=== PATIENT | female | born 1955 | race Caucasian/White ===

== ENCOUNTER → 2019-09-07 10:36 | Outpatient (CLI) | payer MEDICARE, OTHER, SELFPAY ==
[2019-09-07 11:46] LABS: Hematocrit 39.4 % (36-46); Hemoglobin 13.1 g/dL (12.0-16.0); Mean Corpuscular HGB Conc 33.2 % (30-36); Mean Corpuscular Hemoglobin 32.9 PG (26-34); Platelet Count 321 X10^3/uL (150-400); Red Blood Cell Count 3.98 X10^6/uL (4.0-5.2); Red Cell Distribution Width 13.4 % (11.6-14.8); White Blood Cell Count 6.2 X10^3/uL (4.5-11.0)
== END ==
PROVIDERS: Visit Provider Orthopaedic Surgery
DX: Z01.818 Encounter for other preprocedural examination (principal)
CPT/HCPCS: 36415; 85027

== ENCOUNTER 2019-09-19 08:01 | Day surgery (SDC) | payer MEDICARE, OTHER, SELFPAY ==
[2019-09-07 12:55] VITALS: BMI 20.7
[2019-09-19] VITALS (17 sets, daily range): BP systolic 74–124; BP diastolic 39–69; PULSE 49–68; RESP 8–18; TEMP 35.8–37.1; O2SAT 95–100; BMI 20.7
--- NOTE | 2019-09-19 08:15 | DI.RAD.S_ITS ---
PROCEDURE: XR KNEE LT 1TO2V INDICATIONS: post operative left knee TECHNIQUE: 2 view(s) of the knee acquired. COMPARISON: None. FINDINGS: Bones: Patient is status post knee joint arthroplasty. Hardware components are in expected positions. Visualized bony structures are intact. Soft tissues: Overlying postoperative changes are noted. IMPRESSION: Expected postoperative appearance Dictated by: Trung Guzmán M.D. on 09/19/2019 at 13:39 Approved by: Trung Guzmán M.D. on 09/19/2019 at 13:40
[2019-09-19] MEDS: PREGABALIN 75 MG CAPSULE PO (08:56)
[2019-09-19] MEDS: ACETAMINOPHEN 325 MG TABLET 975 MG PO ×3 (08:56→21:05)
[2019-09-19] MEDS: LACTATED RINGERS 1,000 ML 42 ML IV ×2 (08:56→11:50)
[2019-09-19] MEDS: CELECOXIB 200 MG CAPSULE PO (08:56)
--- NOTE | 2019-09-19 09:53 | PM.PREOP ---
Pre-operative Note Interval Note History & Physical reviewed/Exam performed by Physician: Yes Changes to H&P: Yes H&P completed within 30 days and has changed as indicated here:: Dose of hypothyroid medication was increased. This has been appropriately recorded in the chart.
--- NOTE | 2019-09-19 10:23 | PM.OP.1 ---
Operative Date/Time/Diagnoses Date of procedure: 09/19/19 Time of procedure: 11:50 Pre-op diagnosis: Left knee osteoarthritis Post-op diagnosis: same Procedure & Clinicians Procedure: Left total knee replacement Same procedure as scheduled: Yes Indications: The patient has had progressively worsening left knee pain with radiographic changes consistent with arthritis. Non-operative management has failed and the patient has requested total knee replacement. The risks, benefits and alternatives to surgery were discussed with the patient prior to proceeding. Risks discussed included, but were not limited to, failure to relieve pain, stiffness, infection, nerve damage, deep venous thrombosis, pulmonary embolism, stroke, coma, heart attack, permanent paralysis and , as well as the potential need for eventual revision of the prosthetic. Surgeon: Jewel Davison Meteorologist Liaison: Caden Coleman Click Yes if Unassisted: No Anesthesia Type: General, Spinal and Local Operative Notes Findings: Significant patellofemoral osteoarthritis with bone on bone change with moderate medial and lateral osteoarthritic change. Closure Type: primary Specimen(s): none sent Prosthetic devices, grafts, tissues, transplants, or devices: Implants used in this procedure were manufactured by the [employer] and [employer] and included the BCS II Journey total knee replacement with a size 3 left Oxinium femoral component, a size 3 left non porous tibial base plate, a 9 mm cross-linked constrained tibial insert and a 32 mm oval Sasha II patellar component. Applied: implant(s) Estimated Blood Loss (mL): 25 Blood products transfused: none Tourniquet time (min): 49 Procedure in detail: The patient was seen in the pre-operative area, where the left knee was identified as the operative site and this was marked with my initials. The patient received pre-operative antibiotics, and was taken to the operating room and placed on the operative table in the supine position. After satisfactory anesthesia, a multimedia teacher out? was performed. The left leg was encircled with a tourniquet about the proximal thigh, and the leg was prepared from the toes to the tourniquet with ChloroPrep in the usual fashion and draped through sterile drapes. The leg was elevated and exsanguinated with Eschmark bandage and the tourniquet inflated to 250 mmHg pressure. The knee was approached through an approximately 18 cm incision centered over the patella and carried into the knee through a medial parapatellar arthrotomy. The anterior osteophytes and soft tissues were removed. The rotational landmarks of Gurmeet's line and the transepicondylar axis were marked on the femur with electrocautery, and intramedullary guide holes for the femur and tibia were created. The distal femoral cut was made in 6 degrees of valgus using the intramedullary guide at the primary cut setting. The proximal tibial cut was then made using the intramedullary guide, taking 9 mm of bone off the less involved side. The extension gap was checked and the rotation of the femoral component confirmed with the gap balancing blocks. The knee was completely stable in extension but there was some gapping on the medial side in flexion. Correcting this by rotating the femoral component would have resulted in extensive internal femoral rotation. The anterior, posterior and chamfer cuts were then made. The posterior osteophytes and soft tissues were then removed. The posterior capsule was injected with part of a mixture of 60 ml 0.25% Marcaine mixed with 20 ml Exparel and 4 mg of morphine for post-operative pain control. The remainder of this mixture was injected into the capsule and subcutaneous tissues during cement curing. The tibia was prepared with the rotation set by an extra medullary guide. Trial tibial and femoral components were then placed and the intercondylar notch cut through the femoral trial. Range of motion was 0-140 degrees, with some residual laxity on the medial side in flexion. As a result I elected to use a constrained tibial insert to provide additional medial lateral stability. The patella was then cut to accommodate the patellar prosthetic. There was no need for a lateral release. The trials were then removed, and the femoral hole plugged with a bone plug. The bone was prepared with pulsatile lavage, and dried with a sponge. Cement was applied and the final prosthetics placed. Excess cement was removed during and after cement curing. After confirming there was no extruded cement posteriorly, the final tibial insert was placed. The knee was copiously irrigated and the tourniquet deflated. Hemostasis was obtained. The capsule was closed with interrupted # 2 polyester sutures. The subcutaneous layer was closed with 3-0 Vicryl, and the skin with a running 3-0 V-Lock suture and SteriStrips. An Aquacel Ag dressing was applied and the patient was taken to recovery having tolerated the procedure well. Complications: none Post-operative Condition: stable Disposition: PACU Plan for aftercare: The patient will be maintained on a standard total knee replacement protocol with weight bearing as tolerated. The patient will receive aspirin and sequential compression devices for DVT prophylaxis. The patient will be discharged home when safe for the home environment.
[2019-09-19] MEDS: CEFAZOLIN 2 GM/100 ML FROZ.PIGGY IV (10:27)
[2019-09-19] MEDS: TRANEXAMIC ACID 1,000 MG VIAL 1000 MG INJ ×2 (10:41→11:43)
--- NOTE | 2019-09-19 10:56 | SUR.OPER ---
Supine on padded OR bed. Pillow under head, arms secured on padded armboards <90 degree abduction. Safety belt across torso. Non-operative leg secured with tape over blanket over lower leg. Operative leg secured in DeMayo/Nabor positioner.
[2019-09-19] MEDS: BUPIVACAINE 0.25% W/ EPI 30 ML VIAL 60 ML INJ (11:01)
[2019-09-19] MEDS: BUPIVACAINE LIPOSOME 266 MG/20 ML VIAL INJ (11:02)
[2019-09-19] MEDS: MORPHINE 4 MG/ML INJ INJ (11:02)
[2019-09-19] MEDS: HYDROMORPHONE 2 MG INJ 0.5 MG IV ×2 (12:15→12:27)
--- NOTE | 2019-09-19 12:16 | SUR.PHASEI ---
BP 74/39, Dr. Cottrell at bedside. 500ml bolus LR ordered and started by .
--- NOTE | 2019-09-19 12:30 | SUR.PHASEI ---
Pt reported that her knee popped. JORGITO Hamilton notified and evaluated patient. No new orders.
--- NOTE | 2019-09-19 12:39 | SUR.PHASEI ---
Bolus complete. Bp 88/52.
--- NOTE | 2019-09-19 12:43 | SUR.PHASEI ---
Report to Lyla
--- NOTE | 2019-09-19 12:47 | SUR.PHASEI ---
assumed care from Jojo Brar RN; pt states that pain is coming down It's not a miracle cure. No non-verbal indicators of pain. Resting calmly, taking ice chips. Willie trujillo
[2019-09-19] MEDS: OXYCODONE IR 5 MG TABLET PO ×2 (12:55→22:11)
--- NOTE | 2019-09-19 13:16 | SUR.PHASEI ---
1307 report was called to AC RN, pt to floor by Jojo Brar RN. Clothing bag taken, pain controlled at 4/10, +motion/sensation in LE, Drst CDI. Stable.
[2019-09-19] MEDS: LACTATED RINGERS 1,000 ML 125 ML IV ×2 (13:20→21:09)
--- NOTE | 2019-09-19 13:52 | PC.NURSE ---
Addendum entered by Scarlett Angel R.N. 09/19/19 14:54: Vitals stable. Feeling well overall, working on eating a little snack. Was medicated with scheduled Tylenol and denies need for additional pain meds at this time. Able to make needs known. Light in reach, bed alarm on. Original Note: Post-op: Arrived to room 228 at 1315. Wide awake and alert, oriented X3. Room air w/ cont pulse ox in place. Santiago/dressing to L knee C/D/I. Still a bit numb/tingly in extremities. Is able to wiggle toes, PP+, BLE's warm, pink and with cap refill <2 sec. Rates pain 2/10 at this time. SCD's and ice pack in place. Denies N/V. BT+ (hypoactive), denies flatus at this point. Oriented to room and call light, encouraged to make needs known. Call light within reach, bed alarm on.
[2019-09-19] MEDS: DOCUSATE 100 MG CAPSULE PO (21:04)
[2019-09-19] MEDS: ASPIRIN EC 81 MG TABLET PO (21:05)
--- NOTE | 2019-09-20 00:31 | PC.NURSE ---
Patient is alert and oriented. Breath sounds CTA with RA sat of 99%. HRR. Denies nausea. BT present and abdomen is soft; passing flatus. Voiding per toilet; denies dysuria, frequency or urgency. Able to move self in bed, although assisted to lie on side by placing supportive pillows. Up to bathroom with walker and SBA. Denies pain except with movement and declines pain medication at this time. Ice pack applied to knee. Aquacel + orly wrap is CDI. CMS is intact bilaterally. SCD's applied bilateral. Fall risk score is moderate; bed alarm activated for night.
[2019-09-20] MEDS: OXYCODONE IR 5 MG TABLET PO ×4 (02:29→12:54)
[2019-09-20 04:37] VITALS: BP 111/64; PULSE 54; RESP 16; TEMP 37.2; O2SAT 100
[2019-09-20] MEDS: LEVOTHYROXINE 100 MCG TABLET PO (05:32)
[2019-09-20 05:45] LABS: Hematocrit 33.9 % (36-46); Hemoglobin 11.7 g/dL (12.0-16.0)
--- NOTE | 2019-09-20 07:31 | PM.DS.1 ---
History of Present Illness History of Present Illness Date Patient Seen: 09/20/19 Time Patient Seen: 07:32 Chief complaint: [id number] Narrative: The history and physical is contained in the chart and her previously completed note. Please refer to that note for this information. Discharge Providers Provider Date of admission: 09/19/19 08:01 Discharge Date: 09/20/19 Consults: 09/19/19 13:33 Consult to Discharge Planning Routine Comment: Consult to Physical Therapy Evaluate & Treat Comment: Physician Instructions: postop TKA protocol Consult to Respiratory Therapy Evaluate & Treat Comment: Physician Instructions: Evaluate and treat Discharge provider: Jewel Davison MD Summary Hospital Course Discharge Diagnosis: 1. Left knee osteoarthritis 2. Post hemorrhagic anemia Hospital Course: The patient was admitted to the hospital and taken directly to the operating room on September 19, 2019 where she underwent a left total knee replacement without complications. She was stable on postoperative day 1 and had been up multiple times to the bathroom overnight. At the time of this dictation is felt she will likely be stable for discharge later today. Status at Discharge Cognitive/behavioral status at discharge: oriented Functional status at discharge: uses cane/walker Overall status at discharge: patient is progressing back to baseline Time Spent with Patient Time spent: Less than 30 minutes Exam Vital Signs (past 8 hours): - 09/19/19 23:35 09/20/19 04:37 Temperature 98.7 F 98.9 F Pulse Rate 51 L 54 L Respiratory Rate 16 16 Blood Pressure 105/58 L 111/64 Pulse Oximetry 100 100 Oxygen Delivery Method Room Air Oxygen Flow Rate 0 Narrative Exam Narrative: Left knee wound is dressed. No drainage on the bandage. Calf is soft. Light touch and motion are intact in the left lower extremity. Objective Labs Result Diagrams: 09/20/19 05:30 Labs: Laboratory Results - last 24 hr 09/20/19 05:30 Hgb 11.7 L Hct 33.9 L Discharge Plan Discharge Plan Patient Disposition: Home Discharge Med Rec/Prescriptions Prescriptions: New acetaminophen 325 mg Tablet 975 mg PO TID 30 Days Qty: 270 RF: 0 aspirin 81 mg Tablet,Delayed Release (Dr/Ec) 81 mg PO BID 42 Days Qty: 84 RF: 0 oxycodone 5 mg Tablet 5 mg PO Q3HR PRN (Reason: Pain, Moderate (4-6)) Qty: 40 RF: 0 hydroxyzine pamoate 25 mg Capsule 25 mg PO Q6HR PRN (Reason: Nausea) Qty: 40 RF: 0 Continued levothyroxine 88 mcg Capsule 100 mcg PO QAM RF: 0 Follow up/Referrals: Jewel Davison MD [Physician] - 3-5 Days Provider Discharge Instructions Diet: Diet as Tolerated and Regular Activity: You may bear weight as tolerated on your left leg. Cold/Heat Therapy: Apply ice to the left knee for 15 minutes of every hour as needed for pain control. Skin/Wound/Dressing Care Report to your healthcare provider any signs of infection, such as:: chills, fever, night sweats, increased pain, unusual drainage and unusual redness Dressing: Remove the Santiago wrap 3 days postoperatively. You may then shower normally with the deeper dressing in place. Leave that dressing in place until your follow-up appointment. If the central strip of the dressing becomes saturated with either water or blood call the office to have it changed. Visit Report/Discharge Packet Instructions: DI for Knee Replacement Stand Alone Forms: Surgery Discharge Quality VTE Deep Vein Thrombosis/Pulmonary Embolism Present on Admission: No
[2019-09-20 07:55] VITALS: BP 110/56; PULSE 51; RESP 18; TEMP 36.8; O2SAT 100
[2019-09-20] MEDS: SODIUM CHLORIDE 0.9% FLUSH 10 ML IV (08:57)
[2019-09-20] MEDS: ASPIRIN EC 81 MG TABLET PO (09:03)
[2019-09-20] MEDS: MELOXICAM 7.5 MG TABLET 15 MG PO (09:03)
[2019-09-20] MEDS: DOCUSATE 100 MG CAPSULE PO (09:03)
[2019-09-20] MEDS: ACETAMINOPHEN 325 MG TABLET 975 MG PO (09:04)
--- NOTE | 2019-09-20 09:17 | CM.DANOTE ---
DCP/Assessment: Reviewed chart. Patient is a 64yr old female admitted to [facility] for left TKA performed on 09-19-[address] Davison. PCP not listed. Primary payor is 1)Medicare 2)[facility]. Met with patient explained CM/SW role. Patient sitting in recliner at time of visit. Patient reports that she hopes to d/c home today. Patient has supportive spouse/Lokesh that can assist with support. Patient reports that she has all needed DME. Patient has outpatient therapy scheduled to begin on 09-26 at [facility]. Patient reports that she is primarily I at baseline. Patient hopes to d/c home today. Therapy evaluation pending. P: Home when medically stable. EDILBERTO Minaya Discharge Planning/Care Management CM Discharge Assessment Start: 09/20/19 09:14 Freq: Status: Active Protocol: Document 09/20/19 09:14 KJS (Rec: 09/20/19 09:17 KJS [id number]) Discharge Planning Assessment Assigned Machine Taper EDILBERTO Minaya Contact Information Lokesh Cutler (spouse) Advance Directives? Yes Advance Directives on File No History Provided By Patient,Medical Record Prior Living Arrangements House Household Members spouse Type of transporation used prior to Drives own vehicle admit Independent with ADL's Yes Is patient alert and oriented? Yes Caregiver for Another No DME Already Rented / Owned Bath Bench,Elevated Toilet Seat,FWW / Walker Patient/Family Preference OP PT Therapy Comment Patient has 7 steps to enter residence Discharge Plan Home Transportation Arrangement Family to provide transport Whiteboard Updated in Patient Room with Yes name and ext. # of Machine Taper Review Status In Process Next Review Type Continued Stay Review Pre-Anesthesia Assessment Start: 09/07/19 12:55 Freq: Status: Complete Protocol: Document 09/07/19 12:55 CAB (Rec: 09/07/19 13:43 CAB [id number]) Pre-Anesthesia Assessment Patient Also Known As (AKA) Laurence Patient Information Reviewed Via Phone Assessment Assessment Completed With Patient Diagnostic Results BMP/CMP,CBC,EKG,Urinalysis Comment Outside labs/EKG scanned to record Primary Care Provider Monika Collins Medical Clearance Received Yes Seen Specialist in Last 12 Months Yes Specialist Seen Orthopedist Comment PCP pre-op 09/01/19 scanned to record Primary Language Arabic Newscast Director Required No Height 165.1 cm Weight 56.699 kg Body Mass Index (BMI) 20.7 Hearing Ability Normal Visual Assist Glasses Dentition Type Teeth, Natural Present Barriers to Learning None Hx Anesthesia Reactions No Hx Family Anesthesia Reaction No Hx Malignant Hyperthermia No Hx Blood Transfusions No Anesthesia Review Requested No alcohol intake current Alcohol Intake Frequency Other: Very rare Smoking Status Never smoker Substance Use Type does not use Pain Present Pain Reported Musculoskeletal Symptoms Abnormal Gait,Difficulty Walking,Joint Pain,Joint Stiffness History of Falling (Recent or History of No ) Patient is completely paralyzed or No completely immobile Mental Status Oriented to own ability Is patient on oxygen? No Does patient have OMALLEY/SOB No Hx Sleep Apnea No Currently Taking a Beta Asif No Can You Climb a Flight of Stairs Without Yes SOB Hx Chest Pain No Hx SOB No Hx Syncope or Dizziness No Anti-Coagulant Therapy No Has a Steel Die Printer No Cardiac Testing No Hx Pacemaker/ICD No Pacemaker Rep Required? No Cardiac Clearance Received Not Applicable Diet Type At Home Gluten Free dysphagia No Bladder Pattern Urgency Urinary Catheter Present No Hx Urinary Self Catheterization No Diabetes Yes HgbA1C 5.0 Date 09/01/19 Patient No Lactating No Hx Drug Resistant Organism No Presence of External or Internal Medical No Devices Have you traveled outside the [facility] States in the last 30 days? Marital Status Lives With spouse Prior Living Arrangements House Number of Floors (Floors) One Floor Number of Stairs To Enter/Railing? 7 Stairs up into house Support System Friend(s),Spouse Does the Patient Have Assistance After Yes Surgery Patient Discharge Plan Description Return Home Comment Pt not advised on length of stay per surgeon's office Feels Safe in Current Environment Yes Been Physically Hurt or Threatened By a No Person in Current Environment Do you have thoughts of harming yourself None or others? Are you currently considering suicide? No Do you have a plan to hurt yourself or No Plan others? Do You Have Any Spiritual Beliefs That No May Affect Your HC Choices? Do You Have Any Cultural Practices That No May Affect Your HC Choices? Who Can We Speak to About Patient's Care Family, friends Identifying Code for Release of Patient Declines to issue Information Health Care Proxy/Next of Kin Lokesh () Health Care Proxy Emergency Contact Name Lokesh () Emergency Contact Advance Directives? Yes Advance Directives on File No Requested Patient Bring Advanced Yes Directives DOS Power of Sample Worker Yes Power of Sample Worker Name Lokesh () Power of Sample Worker PAC Instructions Do not shave/clip surgical site,Durable medical equipment ,Medications to take/avoid, Nasal antibiotic,No ETOH/ petroleum product on skin DOS, NPO,Pre-surgical wash,Sturdy shoes/comfortable clothes
[2019-09-20 10:20] VITALS: PULSE 53; O2SAT 98
--- NOTE | 2019-09-20 10:22 | PT.IIE ---
Current Diagnoses Unilateral primary osteoarthritis, left knee (09/19/19) Surgery Performed Operation Date: 09/19/19 10:15 Actual Procedures p Total Knee Arthroplasty(Left) - Jewel Davison MD Surgical History (Last Updated 09/07/19 @ 13:12 by Elvia Christine, RN) Hx of tonsillectomy (Acute) Medical History (Last Updated 09/07/19 @ 13:12 by Elvia Christine, RN) Anemia (Acute) Dry skin (Acute) GERD (gastroesophageal reflux disease) (Acute) Gluten intolerance (Acute) Hypothyroidism (Acute) Osteoarthritis (Acute) Physical Therapy Inpatient Evaluation/Re-Eval M1 PT/OT-IP Prior Functional Status Start: 09/19/19 14:08 Freq: NEEDED Status: Active Protocol: Document 09/20/19 09:47 AW (Rec: 09/20/19 10:22 AW [id number]) Medical Review Prior Functional Status Medical History Reviewed Yes Diet/Fluid Consistency Regular Communication No known deficits Mobility and Gait Pt was very active, able to walk without limitation and without assistive device. She used bilateral trekking poles for ambulation on uneven terrain. She noticed she was limited last summer in her ability to backpack with significant elevation change. Activities of Daily Living and IADL's Independent Prior Functional Level (Other details) Pt swims, uses a recumbent elliptical, and walks her dogs daily. Social History Household Members spouse Living Arrangements House Number of Floors (Floors) One Floor Number of Stairs To Enter/Railing? 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 She lives with her spouse who plans to take several days off when pt discharges. M2 PT-IP Current Condition Start: 09/19/19 14:08 Freq: NEEDED Status: Active Protocol: Document 09/20/19 09:47 AW (Rec: 09/20/19 10:22 AW [id number]) Physical Therapy Current Condition Current Condition Evaluation Date 09/20/19 Treatment Diagnosis s/p left TKA, difficulty in walking Onset Date 09/19/19 Weight Bearing Status Weight Bearing Status Weight Bear as Tolerated M3 PT-IP Subjective Start: 09/19/19 14:08 Freq: NEEDED Status: Active Protocol: Document 09/20/19 09:47 AW (Rec: 09/20/19 10:22 AW [id number]) Subjective Physical Therapy Visit Type Type Initial Evaluation Visit Start Time 08:53 Visit Stop Time 09:40 Total Visit Minutes 47 Number of CLERICAL SUPPORT SPECIALIST Visits 0 Physical Therapy Visit Comments Patient Comments Pt is happy to participate in therapy. Patient Goals Hopes to discharge today with spouse assist Therapy Pain Assessment Pain When Pain Assessed During Mobility Pain Present Pain Present Pain Reported Location Lt Knee Intensity 5 Scale Used 4/10 at rest; 5/10 during mobility Pain Management Techniques Apply Cold,Re-positioning, Timing of Activity with Medications M4 PT-IP Mobility and Gait Start: 09/19/19 14:08 Freq: NEEDED Status: Active Protocol: Document 09/20/19 09:47 AW (Rec: 09/20/19 10:22 AW [id number]) PT-Bed Mobility Assessment Supine to Sit Supine to Sit Standby Assistance Sit to Supine Sit to Supine Standby Assistance Scooting Scooting to Edge of Bed Standby Assistance PT-Transfer Assessment Sit to and From Stand Sit to and from Stand Standby Assistance,Contact Guard Assistance Equipment Transfer Assistive Device Gait Belt,Front Wheeled Walker Orthotic/Prosthetic Devices or Brace: No Transfers Transfer Destination Bed,Chair,Toilet,Wheelchair Transfer Technique pt ambulated with FWW Transfer Ability Level of Assist Standby Assistance,Contact Guard Assistance Comments Mobility Comments Pt completed supine <> sit transfers with SBA. Sit <> stand transfers required CGA first 2 attempts and SBA for subsequent attempts. Gait Assessment Gait Gait Assistance Required: Standby Assistance,Contact Guard Assist Distance (Feet) 150 Able to Maintain Weight Bearing Status Yes During Gait Assistive Devices Assistive Device Gait Belt,Front Wheeled Walker Orthotic/Prosthetic Devices or Brace: No Gait Deviations General Gait Pattern Antalgic,Decreased Stride Length,Decreased Feet Clearance,Flexed Trunk,Step-to Gait Factors Limiting Gait Function Factors Limiting Gait Function Decreased Activity Tolerance, Decreased Strength,Pain Comments Gait Comments Pt ambulated 150 feet using FWW CGA to SBA with wheelchair follow. She required cues for heelstrike with LLE and swing -through with RLE. She reported increase in pain from 4/10 at rest to 5/10 with ambulation. Stair Climbing Assessment Evaluation Level of Assist On Stairs Contact Guard Assistance Devices Stair Climbing Assistive Devices Left Railing Technique/Endurance Stair Climbing Direction Ascend and Descend Stair Climbing Technique Step to Step Number of Steps Climbed 3 Query Text: Stair Climbing Set # Repetitions (reps) 2 Comments Stair Climbing Comments First set accomplished with bilateral rails in order to focus on teaching pattern. Second set required minimal cues and was completed using left rail ascending and opposite hand DRAMATIC COACH. PT-Balance Assessment Sitting Balance and Reactions Static Sitting Balance Ability Normal Dynamic Sitting Balance Ability Normal Standing Balance and Reactions Static Standing Balance Ability Good Dynamic Standing Balance Ability Good Device Used FWW M5 PT-IP Objective Assessments Start: 09/19/19 14:08 Freq: NEEDED Status: Active Protocol: Document 09/20/19 09:47 AW (Rec: 09/20/19 10:22 AW [id number]) Orientation Orientation/Cognition Level of Alertness Alert Orientation Name,Date,Place,Situation Language Function Ability No Deficits Noted Safety Awareness Understands Safety Issues Memory Description No Deficits Noted Gross Range of Motion Lower Extremity ROM Assessment Left Impaired Strength Upper Extremity Strength Assessment Within Functional Limits Lower Extremity Strength Assessment Left Impaired Coordination Assessment Gross Coordination Gross Coordination WNL Sensation Assessment Sensation Gross Sensation WNL M6 PT-IP Treatment Start: 09/19/19 14:08 Freq: NEEDED Status: Active Protocol: Document 09/20/19 09:47 AW (Rec: 09/20/19 10:22 AW [id number]) Physical Therapy Treatment Exercises Exercises Ankle Pumps,Quad Sets,Heel Slides,Passive Knee Extension Hang Education Education Provided Precautions,Weight Bearing Status,Post-Op Packet,Safety Other Treatments Other Treatment Performed Reviewed PT plan of care, post op exercises, weightbearing status, and safe use of FWW M7 PT-IP Assessment and Plan Start: 09/19/19 14:08 Freq: NEEDED Status: Active Protocol: Document 09/20/19 09:47 AW (Rec: 09/20/19 10:22 AW [id number]) PT Summary Assessment and Plan Potential Rehabilitation Potential Excellent Status of Condition at Evaluation Evolving Summary Impairments Pain,ROM,Strength,Balance,Bed Mobility,Transfers,Gait, Activity Tolerance Assessment Summary Pt is an active 64 yo woman seen on POD1 following L TKA. PLOF: Pt was independent with all functional mobility. She used bilateral trekking poles for walking uneven terrain and was recently limited in backpacking activities. CLOF: Pt required SBA to CGA for all mobility. She tolerated all activity well with minimal increase in pain. Pt has good safety awareness, requiring only minimal cues for use of UE's during transfers. Pt will be safe to discharge home after caregiver training at next session and once medically cleared Goals Bed Mobility Goal Independent Transfer Goal Independent,Front Wheeled Walker Gait Goal Standby Assistance,Front Wheel Walker Gait Distance 150 Other Goals up/down 7 steps with left railing ascending Days to Meet Goals 2 Frequency of Treatment Frequency Of Treatment Twice a Day Treatment Plan Physical Therapy Treatment Plan Bed Mobility Training,Transfer Training,Gait Training, Therapeutic Exercise,Balance Retraining,Post Op Education, Discharge Planning,Hot or Cold Pack,Neuromuscular Re-ed, Coordination Retraining,Manual Therapy Other Recommendations and Next Treatment caregiver training, Focus specifically on stairs Recommendations To Nursing Amount of Assist Needed Standby Assistance Discharge Recommendations PT Discharge Recommendations Home with Assistance, Outpatient PT
--- NOTE | 2019-09-20 11:34 | PC.NURSE ---
Pts l.knee dressing with aquacel and acewrap. Given oxycodone for complaints of discomfort and working with physical therapy. She has passed pt and will work with the again this afternoon, doing stairs and then be able to discharge home. L.lower extremity swollen with 1+ edema. CMS to area is intact.
--- NOTE | 2019-09-20 13:52 | PT.IPTN ---
Current Diagnoses Unilateral primary osteoarthritis, left knee (09/19/19) Surgery Performed Operation Date: 09/19/19 10:15 Actual Procedures p Total Knee Arthroplasty(Left) - Jewel Davison MD Physical Therapy Treatment Note M2 PT-IP Current Condition Start: 09/19/19 14:08 Freq: NEEDED Status: Active Protocol: Document 09/20/19 09:47 AW (Rec: 09/20/19 10:22 AW [id number]) Physical Therapy Current Condition Current Condition Evaluation Date 09/20/19 Treatment Diagnosis s/p left TKA, difficulty in walking Onset Date 09/19/19 Weight Bearing Status Weight Bearing Status Weight Bear as Tolerated M3 PT-IP Subjective Start: 09/19/19 14:08 Freq: NEEDED Status: Active Protocol: Document 09/20/19 13:13 CLB (Rec: 09/20/19 13:52 CLB [id number]) Subjective Physical Therapy Visit Type Type Treatment Note Visit Start Time 13:13 Visit Stop Time 13:42 Total Visit Minutes 29 Number of MEDICAL RECORDS AUDITOR Visits 1 Physical Therapy Visit Comments Patient Comments Pt ready to trial stairs with . Therapy Pain Assessment Pain When Pain Assessed During Mobility Pain Present Pain Present Pain Reported Location Lt Knee Intensity 5 Scale Used Numeric (1 - 10) Pain Management Techniques Apply Cold,Re-positioning, Timing of Activity with Medications M4 PT-IP Mobility and Gait Start: 09/19/19 14:08 Freq: NEEDED Status: Active Protocol: Document 09/20/19 13:13 CLB (Rec: 09/20/19 13:52 CLB [id number]) PT-Transfer Assessment Sit to and From Stand Sit to and from Stand Standby Assistance,Use of Upper Extremities Equipment Transfer Assistive Device Gait Belt,Front Wheeled Walker Orthotic/Prosthetic Devices or Brace: No Transfers Transfer Destination Chair,Wheelchair Transfer Technique pt ambulated with FWW Transfer Ability Level of Assist Standby Assistance,Use of Upper Extremities Comments Mobility Comments Pt transferred with providing SBA. Gait Assessment Gait Gait Assistance Required: Standby Assistance Distance (Feet) 150 Able to Maintain Weight Bearing Status Yes During Gait Assistive Devices Assistive Device Gait Belt,Front Wheeled Walker Orthotic/Prosthetic Devices or Brace: No Gait Deviations General Gait Pattern Antalgic,Decreased Stride Length,Decreased Feet Clearance,Flexed Trunk,Step-to Gait Factors Limiting Gait Function Factors Limiting Gait Function Decreased Activity Tolerance, Decreased Strength,Pain Stair Climbing Assessment Evaluation Level of Assist On Stairs Contact Guard Assistance Devices Stair Climbing Assistive Devices Left Railing Technique/Endurance Stair Climbing Direction Ascend and Descend Stair Climbing Technique Step to Step Number of Steps Climbed 3 Stair Climbing Set # Repetitions (reps) 2 Comments Stair Climbing Comments Pt's able to provide CGA with RESISTANCE BRAZER for stairs. M5 PT-IP Objective Assessments Start: 09/19/19 14:08 Freq: NEEDED Status: Active Protocol: Document 09/20/19 09:47 AW (Rec: 09/20/19 10:22 AW [id number]) Orientation Orientation/Cognition Level of Alertness Alert Orientation Name,Date,Place,Situation Language Function Ability No Deficits Noted Safety Awareness Understands Safety Issues Memory Description No Deficits Noted Gross Range of Motion Lower Extremity ROM Assessment Left Impaired Strength Upper Extremity Strength Assessment Within Functional Limits Lower Extremity Strength Assessment Left Impaired Coordination Assessment Gross Coordination Gross Coordination WNL Sensation Assessment Sensation Gross Sensation WNL M6 PT-IP Treatment Start: 09/19/19 14:08 Freq: NEEDED Status: Active Protocol: Document 09/20/19 13:13 CLB (Rec: 09/20/19 13:52 CLB [id number]) Physical Therapy Treatment Exercises Exercises Ankle Pumps,Quad Sets,Heel Slides Education Education Provided Precautions,Weight Bearing Status,Post-Op Packet,Safety M7 PT-IP Assessment and Plan Start: 09/19/19 14:08 Freq: NEEDED Status: Active Protocol: Document 09/20/19 13:13 CLB (Rec: 09/20/19 13:52 CLB [id number]) PT Summary Assessment and Plan Potential Rehabilitation Potential Excellent Status of Condition at Evaluation Evolving Summary Impairments Pain,ROM,Strength,Balance,Bed Mobility,Transfers,Gait, Activity Tolerance Assessment Summary Pt is SBA for sit<>stand, transfers and gait. Pt required CGA for stair training, able to assist pt during transfers and stairs. Pt seems able to d/c home with when medically stable. Goals Bed Mobility Goal Independent Transfer Goal Independent,Front Wheeled Walker Gait Goal Standby Assistance,Front Wheel Walker Other Goals up/down 7 steps with left railing ascending Days to Meet Goals 2 Frequency of Treatment Frequency Of Treatment Twice a Day Treatment Plan Physical Therapy Treatment Plan Bed Mobility Training,Transfer Training,Gait Training, Therapeutic Exercise,Balance Retraining,Post Op Education, Discharge Planning,Hot or Cold Pack,Neuromuscular Re-ed, Coordination Retraining,Manual Therapy Recommendations To Nursing Amount of Assist Needed Standby Assistance Discharge Recommendations PT Discharge Recommendations Home with Assistance, Outpatient PT
== END 2019-09-20 13:59 | disposition home or self-care (01) ==
LOC: AC 09-20 13:42 → OR 09-20 14:31
PROVIDERS: Visit Provider Orthopaedic Surgery
PROC: 0SRD0JZ Replacement of Left Knee Joint with Synthetic Substitute, Open Approach (ICD-10-PCS; CPT 27447; principal; 2019-09-19 10:15)
DX: M17.12 Unilateral primary osteoarthritis, left knee (principal); E03.9 Hypothyroidism, unspecified; D50.0 Iron deficiency anemia secondary to blood loss (chronic)
CPT/HCPCS: 27447; 36415; 73560; 85014; 85018; 94760; 97110; 97116; 97161; 97530; C1776; C9290; J0690; J1100; J1170; J2250; J2270; J2405; J2704; J3010

== ENCOUNTER → 2022-11-10 09:43 | Outpatient (CLI) | payer MEDICARE, SELFPAY ==
[2019-09-19 13:56] VITALS: BMI 20.7
[2022-11-10 10:36] LABS: COVID19 -Nasal RAPID Negative (Negative)
== END ==
PROVIDERS: Referring Provider Orthopaedic Surgery; Visit Provider Orthopaedic Surgery
DX: Z20.822 Contact with and (suspected) exposure to COVID-19 (principal)
CPT/HCPCS: 87635; C9803

== ENCOUNTER 2022-11-14 08:00 | Observation (INO) | payer MEDICARE, SELFPAY ==
[2019-09-19 13:56] VITALS: BMI 20.7
[2022-11-12] VITALS (13 sets, daily range): BP systolic 94–141; BP diastolic 48–77; PULSE 60–84; RESP 10–21; TEMP 35.6–37; O2SAT 97–100; BMI 20.9; BMI 23.1
--- NOTE | 2022-11-12 08:45 | DI.RAD.S_ITS ---
PROCEDURE: XR KNEE RT 1TO2V INDICATIONS: post op total knee TECHNIQUE: 2 view(s) of the knee acquired. COMPARISON: [facility], CR, XR KNEE LT 1TO2V, 09/19/2019, 12:19. FINDINGS: Bones: Patient is status post knee joint arthroplasty. Hardware components are in expected positions. Visualized bony structures are intact. Soft tissues: Overlying postoperative changes are noted. IMPRESSION: Expected postoperative appearance of the right knee arthroplasty. Dictated by: Bay Akins M.D. on 11/12/2022 at 13:19 Approved by: Bay Akins M.D. on 11/12/2022 at 13:20
[2022-11-12] MEDS: LACTATED RINGERS 1,000 ML 42 ML IV ×2 (09:54→12:13)
[2022-11-12] MEDS: PREGABALIN 75 MG CAPSULE PO (09:57)
[2022-11-12] MEDS: CELECOXIB 200 MG CAPSULE PO (09:57)
[2022-11-12] MEDS: ACETAMINOPHEN 325 MG TABLET 975 MG PO (09:57)
--- NOTE | 2022-11-12 10:38 | PM.PREOP ---
Pre-operative Note COVID-19 COVID-19 status: Negative Result date/Date tested (Pos, Neg/Pending): 11/10/22 Interval Note History & Physical reviewed/Exam performed by Physician: Yes Changes to H&P: No
--- NOTE | 2022-11-12 11:04 | SUR.OPER ---
Supine on padded OR bed. Pillow under head, arms secured on padded armboards <90 degree abduction. Safety belt across torso. Non-operative leg secured with tape over blanket over lower leg. Operative leg secured in DeMayo positioner. Foam padded brace at thigh of operative leg.
[2022-11-12] MEDS: CEFAZOLIN 2 GM/100 ML PREMIX 100 ML IV ×2 (11:30→19:45)
[2022-11-12] MEDS: BUPIVACAINE LIPOSOME 266 MG/20 ML VIAL INJ (11:45)
[2022-11-12] MEDS: MORPHINE 4 MG/ML INJ INJ (11:46)
[2022-11-12] MEDS: BUPIVACAINE 0.5% W/ EPI (PF) 30 ML VIAL INJ (11:46)
[2022-11-12] MEDS: TRANEXAMIC ACID 1,000 MG VIAL 1000 MG INJ ×2 (11:47→12:30)
--- NOTE | 2022-11-12 12:48 | P.OP_ITS ---
Operative Date/Time/Diagnoses Date of procedure: 11/12/22 Time of procedure: 12:48 Pre-op diagnosis: Right knee osteoarthritis Post-op diagnosis: same Procedure & Clinicians Procedure: Right total knee replacement Same procedure as scheduled: Yes Indications: The patient has had progressively worsening right knee pain with radiographic changes consistent with arthritis. Non-operative management has failed and the patient has requested total knee replacement. The risks, benefits and alternatives to surgery were discussed with the patient prior to proceeding. Risks discussed included, but were not limited to, failure to relieve pain, stiffness, infection, nerve damage, deep venous thrombosis, pulmonary embolism, stroke, coma, heart attack, permanent paralysis and , as well as the potential need for eventual revision of the prosthetic. Surgeon: Jewel Davison Mental Health Worker: Michell Dias Yes if Unassisted: No Anesthesia Type: General, Peripheral nerve block and Local Operative Notes Findings: Significant lateral and patellofemoral osteoarthritis with relative preservation of the medial compartment. Closure Type: primary Specimen(s): none sent Prosthetic devices, grafts, tissues, transplants, or devices: Implants used in this procedure were manufactured by the [employer] and included the BCS II Journey total knee replacement with a size 4 right Oxinium femoral component, a size 3 right non porous tibial base plate, a 9 mm cross-linked polyethylene tibial insert and a 32 mm oval Sasha II patella. Applied: implant(s) Estimated Blood Loss (mL): 25 Blood products transfused: none Tourniquet time (min): 45 Procedure in detail: The patient was seen in the pre-operative area, where the patient identified the right knee as the operative site and this was marked with my initials. The patient received pre-operative antibiotics, and was taken to the operating room and placed on the operative table in the supine position. After satisfactory anesthesia, a multimedia authoring specialist out was performed. The right leg was encircled with a tourniquet about the proximal thigh, and the leg was prepared from the toes to the tourniquet with ChloroPrep in the usual fashion and draped through sterile drapes. The leg was elevated and exsanguinated with Eschmark bandage and the tourniquet inflated to 250 mmHg pressure. The knee was approached through an approximately 18 cm incision centered over the patella and carried into the knee through a medial parapatellar arthrotomy. The anterior osteophytes and soft tissues were removed. The rotational landmarks of Gurmeet's line and the transepicondylar axis were marked on the femur with electrocautery, and intramedullary guide holes for the femur and tibia were created. The distal femoral cut was made in 6 degrees of valgus using the intramedullary guide at the primary cut setting. The proximal tibial cut was then made using the intramedullary guide, taking 7 mm of bone off the less involved medial side. The extension gap was checked and the rotation of the femoral component confirmed with the gap balancing system. The anterior, posterior and chamfer cuts were then made. The posterior osteophytes and soft tissues were then removed. The posterior capsule was injected with part of a mixture of 60 ml 0.25% Marcaine mixed with 20 ml Exparel and 4 mg of morphine for post-operative pain control. The remainder of this mixture was injected into the capsule and subcutaneous tissues during cement curing. The tibia was prepared with the rotation set by an extra medullary guide. Trial tibial and femoral components were then placed and the intercondylar notch cut through the femoral trial. Range of motion was 0-140 degrees, with good stability throughout the range. The patella was then cut to accommodate the patellar prosthetic. There was no need for a lateral release. The trials were then removed, and the femoral hole plugged with a bone plug. The bone was prepared with pulsatile lavage, and dried with a sponge. Cement was applied and the final prosthetics placed. Excess cement was removed during and after cement curing. After confirming there was no extruded cement posteriorly, the final tibial insert was placed. The knee was copiously irrigated and the tourniquet deflated. Hemostasis was obtained. The capsule was closed with interrupted # 2 polyester suture. The subcutaneous layer was closed with 3-0 Vicryl, and the skin with a running 3-0 V-Lock suture and Dermabond. An Aquacel Ag dressing was applied and the patient was taken to recovery having tolerated the procedure well. The services of a skilled surgical training specialist were necessary during this case to provide positioning, exposure and retraction to protect vital structures. The surgery could not have been completed in an expedient and safe fashion without a skilled surgical training specialist. Complications: none Post-operative Condition: stable Disposition: PACU Plan for aftercare: The patient will be maintained on a standard total knee replacement protocol with weight bearing as tolerated. The patient will receive aspirin and sequential compression devices for DVT prophylaxis. The patient will be discharged home when safe for the home environment.
[2022-11-12] MEDS: HYDROMORPHONE 2 MG INJ IV ×4 (12:59→13:38)
[2022-11-12] MEDS: OXYCODONE/ACETAMINOPHEN 5/325 TABLET 1 TAB PO (13:09)
--- NOTE | 2022-11-12 16:17 | PT-IP ANOTE ---
Attempted to evaluate patient at 1600. Surgical nerve block still active, pt unable to move leg at all at knee or ankle, unsafe to attempt to stand at this time. Will try again tomorrow prior to potential discharge.
[2022-11-12] MEDS: hydrOXYzine pamoate 25 MG CAPSULE PO (16:23)
[2022-11-12] MEDS: LACTATED RINGERS 1,000 ML 100 ML IV (16:23)
--- NOTE | 2022-11-12 16:34 | PC.NURSE ---
Pt arrived from PACU A&OX3, VSS, on RA at approximately 1400. She reports numbness all the way down R leg, with minimal knee pain at 2/10. She denies n/v. PT at bedside this afternoon attempting to mobilize patient, however due to the numbness in her RLE she is unable to bend her leg up, and reports numbness to great to participate this afternoon, plan to re evaluate tomorrow a.m.She is instructed on the IS, and reaching up to 1800. Awaiting patient to void. LR at 100 ml/hr, bed alarm on, call light in reach, and frequent patient rounding.
[2022-11-12] MEDS: ONDANSETRON 4 MG/2 ML INJ IV (17:30)
[2022-11-12] MEDS: ACETAMINOPHEN 325 MG TABLET 650 MG PO (18:21)
[2022-11-12] MEDS: OXYCODONE IR 10 MG TABLET PO (18:21)
[2022-11-12] MEDS: OXYCODONE IR 5 MG TABLET PO (21:00)
[2022-11-12] MEDS: ASPIRIN EC 81 MG TABLET PO (21:01)
[2022-11-12] MEDS: DOCUSATE 100 MG CAPSULE PO (21:01)
[2022-11-13] MEDS: OXYCODONE IR 5 MG TABLET PO ×4 (00:17→09:58)
[2022-11-13] MEDS: ACETAMINOPHEN 325 MG TABLET 650 MG PO ×4 (00:17→18:48)
[2022-11-13] MEDS: LACTATED RINGERS 1,000 ML 100 ML IV (00:29)
[2022-11-13 00:38] VITALS: BP 127/60; PULSE 64; RESP 18; TEMP 36.7; O2SAT 100
[2022-11-13] MEDS: CEFAZOLIN 2 GM/100 ML PREMIX 100 ML IV (03:49)
[2022-11-13 05:16] LABS: Hematocrit 34.6 % (36-46); Hemoglobin 11.6 g/dL (12.0-16.0)
[2022-11-13] MEDS: LEVOTHYROXINE 112 MCG TABLET PO (05:56)
--- NOTE | 2022-11-13 07:32 | P.DS_ITS ---
History of Present Illness History of Present Illness Date Patient Seen: 11/13/22 Time Patient Seen: 07:32 Chief complaint: RIGHT TKA *OPB* Narrative: The history and physical is contained in the chart previously completed note. Please refer to that note for this information. Discharge Providers Provider Date of admission: November 12, 2022 Discharge Date: 11/13/22 Primary care physician: VELIA Antonio Consults: 11/12/22 13:54 Consult to Discharge Planning Routine Comment: Consult to Physical Therapy Evaluate & Treat Comment: Physician Instructions: postop TKA protocol Discharge provider: Jewel Davison MD Summary Hospital Course Discharge Diagnosis: 1. Right knee osteoarthritis 2. Post hemorrhagic anemia Hospital Course: The patient was admitted to the hospital and taken directly to the operating room on the 12 November 2022. She underwent a right total knee replacement without complications. On postoperative day 1 she had moderate pain control issues but was ready to go home otherwise. At the time of this dictation is anticipated she will be able to go home. She does have a mild post hemorrhagic anemia as anticipated after this surgery. It is anticipated that this will improve without specific intervention. Status at Discharge Cognitive/behavioral status at discharge: at baseline, oriented Functional status at discharge: uses cane/walker Overall status at discharge: patient is progressing back to baseline Time Spent with Patient Time spent: Less than 30 minutes Exam Vital Signs (past 8 hours): - 11/13/22 00:38 Temperature 98.0 F Pulse Rate 64 Respiratory Rate 18 Blood Pressure 127/60 Pulse Oximetry 100 Oxygen Flow Rate 0 Oxygen Delivery Method Room Air Oxygen Flow Rate 0 Narrative Exam Narrative: Right knee wound is dressed with no drainage on the bandage. Calf is soft. Light touch and motion are intact in the right lower extremity. Objective Labs Result Diagrams: 11/13/22 04:23 Labs: Laboratory Results - last 24 hr 11/13/22 04:23 Hgb 11.6 L Hct 34.6 L PFSH Medical History (Updated 11/11/22 @ 09:36 by Elvia Christine RN) Anemia COVID-19 virus infection Dry skin GERD (gastroesophageal reflux disease) Gluten intolerance Hypothyroidism Osteoarthritis Surgical History (Updated 11/11/22 @ 09:35 by Elvia Christine RN) History of total left knee replacement (09/19/19) Hx of tonsillectomy Social History household members: spouse Smoking Status: Never smoker alcohol intake: never Discharge Assessment & Plan Assessment and Plan Assessment: Stable postop day 1 status post right total knee replacement with the anticipated pain issues and mild post hemorrhagic anemia. Plan of Treatment: It is predicted she will be able to go home later this morning. Discharge prescriptions for oxycodone and Vistaril have been sent to her pharmacy. She is been instructed in the use of Tylenol for additional pain relief and the use of low-dose aspirin for DVT prophylaxis. She will be followed up in my office in 10-14 days. Discharge Plan Discharge Plan Patient Disposition: Home Discharge orders & Medications Discharge Orders: Discharge (Order); Ordered 11/13/22 Ordered By: Jewel Davison Prescriptions: New acetaminophen 325 mg Tablet 650 mg PO Q6HR Qty: 250 0RF aspirin 81 mg Tablet,Delayed Release (Dr/Ec) 81 mg PO BID Qty: 84 0RF oxycodone 5 mg Tablet 5 mg PO Q4H PRN (Reason: Pain, Moderate (4-6)) Qty: 40 0RF hydroxyzine pamoate 25 mg Capsule 25 mg PO Q6H PRN (Reason: Spasms) Qty: 30 0RF Continued levothyroxine 112 mcg tablet 112 mcg PO DAILY Follow up/Referrals: Monika Collins ARNP [Primary Care Provider] - Jewel Davison MD [Physician] - As previously scheduled (Follow up with Dr Davison on 11/25/2022 @ 10:30 am at [facility] in [place].) Diet/Activity/Treatments Diet: Diet as Tolerated and Regular Activity: You may bear weight as tolerated on your right leg. Cold/Heat Therapy: You may apply ice to the right knee for 15 minutes of every hour for pain control. Skin/Wound/Dressing Care Report to your healthcare provider any signs of infection, such as:: chills, fever, night sweats, increased pain, unusual drainage and unusual redness Dressing: You may remove the Santiago wrap 3 days after surgery and shower normally. Leave the deeper dressing in place until your follow-up. If the central strip of the deeper dressing becomes saturated with either water or blood, please call the office to have it evaluated. Visit Report/Discharge Packet Instructions: DI for Knee Replacement Stand Alone Forms: Surgery Discharge Discharge Data Primary Care Provider: Monika Collins Attending Provider: Jewel Davison VTE Deep Vein Thrombosis/Pulmonary Embolism Present on Admission: No
[2022-11-13 07:40] VITALS: BP 126/58; PULSE 70; RESP 16; TEMP 36.5; O2SAT 100
[2022-11-13] MEDS: polyethylene glycoL 3350 17 GM POWD.PACK PO (07:43)
--- NOTE | 2022-11-13 09:44 | PT.IIE ---
Current Diagnoses Unilateral primary osteoarthritis, right knee (11/12/22) Surgery Performed Operation Date: 11/12/22 11:45 Actual Procedures p Total Knee Arthroplasty(Right) - Jewel Davison MD Surgical History (Last Updated 11/11/22 @ 09:35 by Elvia Christine, RN) History of total left knee replacement (09/19/19) Hx of tonsillectomy Medical History (Last Updated 11/11/22 @ 09:36 by Elvia Christine RN) Anemia COVID-19 virus infection Dry skin GERD (gastroesophageal reflux disease) Gluten intolerance Hypothyroidism Osteoarthritis Physical Therapy Inpatient Evaluation/Re-Eval M1 PT/OT-IP Prior Functional Status Start: 11/13/22 10:46 Freq: NEEDED Status: Active Protocol: Document 11/13/22 09:44 DLM (Rec: 11/13/22 11:09 SHON [id number]) Medical Review Prior Functional Status Medical History Reviewed Yes Diet/Fluid Consistency Regular Communication WFL, glasses Mobility and Gait Independent without device Activities of Daily Living and IADL's Independent Prior Functional Level (Other details) she had left TKA about 3 years ago and pt reports good recovery Social History Household Members spouse Living Arrangements House Number of Floors (Floors) One Floor Number of Stairs To Enter/Railing? 6 with rail Home Environment High Toilet,Tub/Shower Home Equipment Front Wheel Walker,Straight Cane,Shower Seat with Backrest ,Grab Bars In Shower Employment Status Retired M2 PT-IP Current Condition Start: 11/13/22 10:46 Freq: NEEDED Status: Active Protocol: Document 11/13/22 09:44 DLM (Rec: 11/13/22 11:09 DL [id number]) Physical Therapy Current Condition Current Condition Evaluation Date 11/13/22 Treatment Diagnosis right Total knee arthroplasty, impaired mobility/gait Onset Date 11/12/22 M3 PT-IP Subjective Start: 11/13/22 10:46 Freq: NEEDED Status: Active Protocol: Document 11/13/22 09:44 DLM (Rec: 11/13/22 11:09 DLM [id number]) Subjective Physical Therapy Visit Type Type Initial Evaluation Visit Start Time 09:00 Visit Stop Time 09:44 Total Visit Minutes 44 Number of BALE STACKER Visits 0 Physical Therapy Visit Comments Patient Comments She reports feeling a little nauseated/upset stomach today, still having numbness in right LE Patient Goals Discharge home Therapy Pain Assessment Pain When Pain Assessed After Treatment Pain Present Pain Present Pain Reported Location Lt Knee Intensity 6 Scale Used Numeric (0 - 10) Description Aching,Tender,With Movement Pain Behaviors Facial Grimacing,Guarding Pain Management Techniques Apply Cold,Elevation,Timing of Activity with Medications M4 PT-IP Mobility and Gait Start: 11/13/22 10:46 Freq: NEEDED Status: Active Protocol: Document 11/13/22 09:44 DLM (Rec: 11/13/22 11:09 [facility] [id number]) PT-Bed Mobility Assessment Supine to Sit Supine to Sit Standby Assistance Scooting Scooting to Edge of Bed Independent PT-Transfer Assessment Sit to and From Stand Sit to and from Stand Contact Guard Assistance,Use of Upper Extremities Equipment Transfer Assistive Device Gait Belt,Front Wheeled Walker Transfers Transfer Destination Chair,Bedside Commode Transfer Technique Stand Step Pivot Transfer Ability Level of Assist Contact Guard Assistance,Use of Upper Extremities Comments Mobility Comments Up to commode to urinate this visit. She was left up in the recliner with needs close at the end of this visit. Gait Assessment Gait Gait Assistance Required: Contact Guard Assist Distance (Feet) 20 Assistive Devices Assistive Device Gait Belt,Front Wheeled Walker Gait Deviations General Gait Pattern Within Normal Limits,Decreased Stride Length Factors Limiting Gait Function Factors Limiting Gait Function Decreased Activity Tolerance, Decreased Strength,Limited Range of Motion,Pain,Poor Balance Comments Gait Comments Steppage gait pattern on right due to dorsiflexion weakness, significant use of UE support on FWW to manage the pain when weight bearing on right LE. Adjusted FWW to better height. She complains of not feeling well during gait with mild light-headedness and mild nausea. Vital signs this visit in sitting: BP 123/57 and HR 70. Stair Climbing Assessment Comments Stair Climbing Comments she is not ready for stair training this visit PT-Balance Assessment Sitting Balance and Reactions Static Sitting Balance Ability Normal Dynamic Sitting Balance Ability Normal Standing Balance and Reactions Static Standing Balance Ability Fair Dynamic Standing Balance Ability Fair Device Used FWW M5 PT-IP Objective Assessments Start: 11/13/22 10:46 Freq: NEEDED Status: Active Protocol: Document 11/13/22 09:44 DLM (Rec: 11/13/22 11:09 [facility] [id number]) Orientation Orientation/Cognition Level of Alertness Alert Orientation Name,Age,Birthday,Month,Date, Year,Day of Week,Place, Situation Language Function Ability No Deficits Noted Safety Awareness Understands Safety Issues Memory Description No Deficits Noted Gross Range of Motion Upper Extremity ROM Assessment Within Functional Limits Lower Extremity ROM Assessment Right Impaired Impairments right knee 5-90 degrees Strength Upper Extremity Strength Assessment Within Functional Limits Lower Extremity Strength Assessment Right Impaired Hip needs assist for straight leg raise Knee knee ext 2+/5, flex 3+/5 Ankle DF 0/5 Comments Strength Comments new post-op right ankle weakness, her nurse was notified and she is calling the surgeon to notify Coordination Assessment Gross Coordination Gross Coordination WNL Sensation Assessment Sensation Gross Sensation Right LE Impaired Comments Sensation Comments post-op numbness reported by pt in right LE Muscle Tone Muscle Tone WNL Yes M6 PT-IP Treatment Start: 11/13/22 10:46 Freq: NEEDED Status: Active Protocol: Document 11/13/22 09:44 DLM (Rec: 11/13/22 11:09 DL [id number]) Physical Therapy Treatment Exercises Exercises Ankle Pumps,Quad Sets,Heel Slides,Straight Leg Raises, Short Arc Quads,Passive Knee Extension Hang,Seated Knee Flexion/Extension Education Education Provided Weight Bearing Status,Post-Op Packet,Safety M7 PT-IP Assessment and Plan Start: 11/13/22 10:46 Freq: NEEDED Status: Active Protocol: Document 11/13/22 09:44 DLM (Rec: 11/13/22 11:09 DL [id number]) PT Summary Assessment and Plan Potential Rehabilitation Potential Excellent Status of Condition at Evaluation Evolving Summary Impairments Pain,ROM,Strength,Balance, Sensation,Bed Mobility, Transfers,Gait,Activity Tolerance Assessment Summary Laurence is alert and resting in bed. She reports she has been having issues with pain and numbness in right LE since surgery. She was able to get up to the bedside commode with nursing. This visit she was able to ambulate short distances in the room and get up the recliner. Noted pt has no active dorsiflexion right ankle this visit. Her nurse was notified. Pt has a steppage gait pattern due to the right ankle weakness. She complains of nausea and light- headedness with activity. Her vital signs appear stable this visit. She is not ready to discharge home at this time. Will plan to see her this afternoon for further gait training and progression to stair training when able. Her nurse is notifying the surgeon about ongoing ankle weakness post-op. Will continue to assess the pt for discharge planning as she progresses in therapy. Goals Bed Mobility Goal Independent Transfer Goal Independent,Front Wheeled Walker Gait Goal Independent,Front Wheel Walker Gait Distance 75 feet Other Goals Up and down 6 steps with rail and cane, CG assist Days to Meet Goals 3 Frequency of Treatment Frequency Of Treatment Twice a Day Treatment Plan Physical Therapy Treatment Plan Bed Mobility Training,Transfer Training,Gait Training, Therapeutic Exercise,Balance Retraining,Post Op Education, Discharge Planning,Hot or Cold Pack,Neuromuscular Re-ed Precautions Other Precautions monitor right ankle weakness Weight Bearing Status Weight Bearing Status Weight Bear as Tolerated Allowed Weight Bearing Amount (enter % right LE or #) (%) Recommendations To Nursing Amount of Assist Needed 1 Person Assist Discharge Recommendations PT Discharge Recommendations Home with Assistance, Outpatient PT Transportation Needs at Discharge Private Vehicle
[2022-11-13] MEDS: DOCUSATE 100 MG CAPSULE PO ×2 (09:55→20:10)
[2022-11-13] MEDS: ASPIRIN EC 81 MG TABLET PO ×2 (09:55→20:10)
[2022-11-13] MEDS: hydrOXYzine pamoate 25 MG CAPSULE PO ×3 (09:59→20:09)
[2022-11-13] MEDS: OXYCODONE IR 10 MG TABLET PO ×3 (12:43→20:10)
--- NOTE | 2022-11-13 12:43 | CM.DANOTE ---
DCP Assessment: Patient is a 67 yr old female who was admitted for RTKA preformed by Dr. Garner. CM met with the patient at the bedside and explained role patient was alert and oriented x4 during visit. patient currently resides in [place] with her and has 6 steps to get into her home. Patient drives at her baseline and is Independent will all ADLS. patients will be providing transportation home today once patient clears PT. she needs to clear stairs. patient stated she does want to go home today and is hopeful she will be able to. Patient has OP PT set up with [facility] in [place] starting on next Thursday. I: [facility] and self pay. Plan: DC home with no identified dc planning needs at this time. Kirti Lopez RNintellectual property counsel Discharge Planning/Care Management CM Discharge Assessment Start: 11/13/22 12:30 Freq: Status: Active Protocol: Document 11/13/22 12:30 HS (Rec: 11/13/22 12:43 HS [id number]) Discharge Planning Assessment Assigned Slide Maker Kirti Lopez RNmanager laboratory DPOA/Assigned Designee Name Lokesh Cutler- Contact Information [phone] Advance Directives? Yes: Health Care Directive; Personal & Health Care DPOA Advance Directives on File No History Provided By Patient,Medical Record Has Patient been admitted in last 30 No days? Prior Living Arrangements House Household Members spouse Type of transporation used prior to Drives own vehicle admit Comment patient will provide transport home. Independent with ADL's Yes Is patient alert and oriented? Yes Caregiver for Another No DME Already Rented / Owned FWW / Walker,Cane Patient/Family Preference OP PT Therapy Barriers to Discharge No Comment Patient has 7 steps to enter residence Discharge Plan Home Transportation Arrangement Family to provide transport Referrals Initiated None needed Whiteboard Updated in Patient Room with Yes name and ext. # of Slide Maker Review Status In Process Next Review Type Continued Stay Review Pre-Anesthesia Assessment Start: 11/11/22 09:33 Freq: Status: Complete Protocol: Document 11/11/22 09:33 CAB (Rec: 11/11/22 09:39 CAB [id number]) Pre-Anesthesia Assessment PAC Comment Pt is s/p LT TKA 09/19/19. She declined phone assessment for upcoming surgery. She reports no changes to medical/ medication history, no questions/concerns with upcoming surgery. Chart review only. Preferred Name Laurence Patient Information Reviewed Via Chart Review Diagnostic Results BMP/CMP,CBC,EKG Comment Outside labs/ECG scanned, COVID screen @ [facility] 11/10/22 Negative Primary Care Provider Monika Collins Seen Specialist in Last 12 Months Yes Specialist Seen Orthopedist Primary Language Bahraini Preferred Language Bahraini Telecommunications Repairer Required No Height 165.1 cm Weight 54.431 kg Body Mass Index (BMI) 20.0 Hearing Ability Normal Visual Assist Glasses Dentition Type Teeth, Natural Present Barriers to Learning None Hx Anesthesia Reactions No Hx Family Anesthesia Reaction No Hx Malignant Hyperthermia No Hx Blood Transfusions No Anesthesia Review Requested No Plaster Mixer No alcohol intake current alcohol intake frequency holidays/special occasions only Smoking Status Never smoker Substance Use Type does not use Pain Present Pain Reported Musculoskeletal Symptoms Abnormal Gait,Difficulty Walking,Joint Pain,Joint Stiffness History of Falling (Recent or History of No ) Patient is completely paralyzed or No completely immobile Mental Status Oriented to own ability Is patient on oxygen? No Does patient have OMALLEY/SOB No Hx Sleep Apnea No CPAP/BIPAP use not prescribed Currently Taking a Beta Asif No Can You Climb a Flight of Stairs Without Yes SOB Hx Chest Pain No Hx SOB No Hx Syncope or Dizziness No Anti-Coagulant Therapy No Has a Supervisor Tank House No Cardiac Testing No Hx Pacemaker/ICD No Pacemaker Rep Required? No Cardiac Clearance Received Not Applicable Diet Type At Home Gluten Free Dysphagia No Gastrointestinal Symptoms None Bladder Pattern Urgency Urinary Catheter Present No Hx Urinary Self Catheterization No Diabetes No Patient No Lactating No Hx Drug Resistant Organism No Presence of External or Internal Medical No Devices Marital Status Lives With spouse Current Living Arrangements House Number of Floors (Floors) One Floor Support System Friend(s),Spouse Does the Patient Have Assistance After Yes Surgery Patient Discharge Plan Description Return Home Feels Safe in Current Environment Yes Been Physically Hurt or Threatened By a No Person in Current Environment Do you have thoughts of harming yourself None or others? Are you currently considering suicide? No Do You Have Any Spiritual Beliefs That No May Affect Your HC Choices? Do You Have Any Cultural Practices That No May Affect Your HC Choices? Who Can We Speak to About Patient's Care Family, friends Identifying Code for Release of Patient Declines to issue Information Health Care Proxy/Next of Kin Lokesh () Health Care Proxy Emergency Contact Name Lokesh () Emergency Contact Advance Directives? Yes: Health Care Directive; Personal & Health Care DPOA Advance Directives on File No Power of Batting Machine Operator Insulation Yes Power of Batting Machine Operator Insulation Name Lokesh () Power of Batting Machine Operator Insulation
[2022-11-13 12:48] VITALS: BP 120/60; PULSE 70; RESP 16; TEMP 36.8; O2SAT 100
[2022-11-13] MEDS: IBUPROFEN 400 MG TABLET PO ×3 (12:48→20:09)
--- NOTE | 2022-11-13 14:30 | PT.IPTN ---
Current Diagnoses Unilateral primary osteoarthritis, right knee (11/13/22) Surgery Performed Operation Date: 11/12/22 11:45 Actual Procedures p Total Knee Arthroplasty(Right) - Jewel Davison MD Physical Therapy Treatment Note M2 PT-IP Current Condition Start: 11/13/22 10:46 Freq: NEEDED Status: Active Protocol: Document 11/13/22 09:44 DLM (Rec: 11/13/22 11:09 DLM [id number]) Physical Therapy Current Condition Current Condition Evaluation Date 11/13/22 Treatment Diagnosis right Total knee arthroplasty, impaired mobility/gait Onset Date 11/12/22 M3 PT-IP Subjective Start: 11/13/22 10:46 Freq: NEEDED Status: Active Protocol: Document 11/13/22 14:26 [facility] (Rec: 11/13/22 17:20 [facility] [id number]) Subjective Physical Therapy Visit Type Type Treatment Note Visit Start Time 13:30 Visit Stop Time 14:17 Total Visit Minutes 47 Number of GTA Visits 0 Physical Therapy Visit Comments Patient Comments Pt feeling better and was able to eat a little for lunch. Therapy Pain Assessment Pain When Pain Assessed During Mobility Pain Present Pain Present Pain Reported Location Lt Knee Pain Management Techniques Apply Cold,Elevation, Modification of Treatment,Re- positioning M4 PT-IP Mobility and Gait Start: 11/13/22 10:46 Freq: NEEDED Status: Active Protocol: Document 11/13/22 14:26 [facility] (Rec: 11/13/22 17:20 [facility] [id number]) PT-Bed Mobility Assessment Sit to Supine Sit to Supine Standby Assistance Scooting Scooting to Edge of Bed Standby Assistance Scooting Up and Down in Bed Standby Assistance PT-Transfer Assessment Sit to and From Stand Sit to and from Stand Standby Assistance,Use of Upper Extremities Equipment Transfer Assistive Device Gait Belt,Front Wheeled Walker Orthotic/Prosthetic Devices or Brace: No Transfers Transfer Destination Chair Transfer Technique Stand Step Pivot Transfer Ability Level of Assist Standby Assistance,Use of Upper Extremities Comments Mobility Comments sit to stand from chair to FWW SBA then amb to bathroom and pt sat on toilet w/rail SBA and wiped indep and stood SBA to FWW. Amb to sink to wash hands & face and brush teeth SBA. Amb to chair and sat SBA. Pt then amb 85ft w/FWW and CGA then sat in WC SBA. Pt was brought to stairs but started to feel off so did not do stairs as pt was shaking upon standing. Pt transfered form WC to bed SBA w/FWW. and did sit to supine SBA. Pt positioned w/RLE elevated and compression on w/call light in reacha nd RN in room. Gait Assessment Gait Gait Assistance Required: Standby Assistance,Contact Guard Assist Distance (Feet) 100 Assistive Devices Assistive Device Gait Belt,Front Wheeled Walker Orthotic/Prosthetic Devices or Brace: No Gait Deviations General Gait Pattern Antalgic,Decreased Stride Length,Step-to Gait Factors Limiting Gait Function Factors Limiting Gait Function Decreased Activity Tolerance, Decreased Strength,Limited Range of Motion,Pain M5 PT-IP Objective Assessments Start: 11/13/22 10:46 Freq: NEEDED Status: Active Protocol: Document 11/13/22 09:44 [facility] (Rec: 11/13/22 11:09 [facility] [id number]) Orientation Orientation/Cognition Level of Alertness Alert Orientation Name,Age,Birthday,Month,Date, Year,Day of Week,Place, Situation Language Function Ability No Deficits Noted Safety Awareness Understands Safety Issues Memory Description No Deficits Noted Gross Range of Motion Upper Extremity ROM Assessment Within Functional Limits Lower Extremity ROM Assessment Right Impaired Impairments right knee 5-90 degrees Strength Upper Extremity Strength Assessment Within Functional Limits Lower Extremity Strength Assessment Right Impaired Hip needs assist for straight leg raise Knee knee ext 2+/5, flex 3+/5 Ankle DF 0/5 Comments Strength Comments new post-op right ankle weakness, her nurse was notified and she is calling the surgeon to notify Coordination Assessment Gross Coordination Gross Coordination WNL Sensation Assessment Sensation Gross Sensation Right LE Impaired Comments Sensation Comments post-op numbness reported by pt in right LE Muscle Tone Muscle Tone WNL Yes M6 PT-IP Treatment Start: 11/13/22 10:46 Freq: NEEDED Status: Active Protocol: Document 11/13/22 14:26 [facility] (Rec: 11/13/22 17:20 [facility] [id number]) Physical Therapy Treatment Education Education Provided Safety M7 PT-IP Assessment and Plan Start: 11/13/22 10:46 Freq: NEEDED Status: Active Protocol: Document 11/13/22 14:26 [facility] (Rec: 11/13/22 17:20 [facility] [id number]) PT Summary Assessment and Plan Summary Impairments Pain,ROM,Strength,Balance, Sensation,Bed Mobility, Transfers,Gait,Activity Tolerance Progress Towards Goals Progressing Toward Goals Assessment Summary Pt did better with mobility this PM but did get shakey by end of session and was unable to do stairs at this time. She will need to do stairs before she is ready for DC. Pt still has no active DF, inversion or eversion of R foot which limits her gait at this time. Per RNMD is aware and states it is the block. Goals Bed Mobility Goal Independent Transfer Goal Independent,Front Wheeled Walker Gait Goal Independent,Front Wheel Walker Gait Distance 75 feet Other Goals Up and down 6 steps with rail and cane, CG assist Days to Meet Goals 3 Frequency of Treatment Frequency Of Treatment Twice a Day Treatment Plan Physical Therapy Treatment Plan Bed Mobility Training,Transfer Training,Gait Training, Therapeutic Exercise,Balance Retraining,Post Op Education, Discharge Planning,Hot or Cold Pack,Neuromuscular Re-ed Other Recommendations and Next Treatment stair training Focus Precautions Other Precautions monitor right ankle weakness Weight Bearing Status Weight Bearing Status Weight Bear as Tolerated Allowed Weight Bearing Amount (enter % right LE or #) (%) Recommendations To Nursing Amount of Assist Needed 1 Person Assist Discharge Recommendations PT Discharge Recommendations Home with Assistance, Outpatient PT Transportation Needs at Discharge Private Vehicle
[2022-11-13 16:35] VITALS: BP 133/63; PULSE 71; RESP 16; TEMP 36.9; O2SAT 98
[2022-11-13 20:00] VITALS: BP 130/64; PULSE 69; RESP 17; TEMP 37.2; O2SAT 99
[2022-11-14 00:12] VITALS: BP 125/63; PULSE 77; RESP 17; TEMP 36.7; O2SAT 97
[2022-11-14] MEDS: OXYCODONE IR 10 MG TABLET PO ×3 (02:32→12:47)
[2022-11-14] MEDS: hydrOXYzine pamoate 25 MG CAPSULE PO (02:33)
[2022-11-14 04:00] VITALS: BP 132/72; PULSE 69; RESP 17; TEMP 36.7; O2SAT 96
[2022-11-14] MEDS: LEVOTHYROXINE 112 MCG TABLET PO (06:03)
[2022-11-14] MEDS: ASPIRIN EC 81 MG TABLET PO (09:14)
[2022-11-14] MEDS: DOCUSATE 100 MG CAPSULE PO (09:14)
[2022-11-14] MEDS: polyethylene glycoL 3350 17 GM POWD.PACK PO (09:17)
[2022-11-14 09:50] VITALS: BP 128/70; PULSE 76; RESP 16; TEMP 37.1; O2SAT 96
--- NOTE | 2022-11-14 10:49 | PT.IPTN ---
Current Diagnoses Unilateral primary osteoarthritis, right knee (11/13/22) Surgery Performed Operation Date: 11/12/22 11:45 Actual Procedures p Total Knee Arthroplasty(Right) - Jewel Davison MD Physical Therapy Treatment Note M2 PT-IP Current Condition Start: 11/13/22 10:46 Freq: NEEDED Status: Active Protocol: Document 11/13/22 09:44 [facility] (Rec: 11/13/22 11:09 [facility] [id number]) Physical Therapy Current Condition Current Condition Evaluation Date 11/13/22 Treatment Diagnosis right Total knee arthroplasty, impaired mobility/gait Onset Date 11/12/22 M3 PT-IP Subjective Start: 11/13/22 10:46 Freq: NEEDED Status: Active Protocol: Document 11/14/22 10:49 [facility] (Rec: 11/14/22 13:56 AB [id number]) Subjective Physical Therapy Visit Type Type Treatment Note Visit Start Time 10:49 Visit Stop Time 11:31 Total Visit Minutes 42 Number of INTELLIGENT SYSTEMS ENGINEER Visits 0 Physical Therapy Visit Comments Patient Comments agreeable to do PT Therapy Pain Assessment Pain When Pain Assessed At Rest Pain Present Pain Present Pain Reported Location Right Knee Intensity 4 Scale Used Numeric (0 - 10) Pain Management Techniques Apply Cold,Modification of Treatment,Re-positioning, Timing of Activity with Medications M4 PT-IP Mobility and Gait Start: 11/13/22 10:46 Freq: NEEDED Status: Active Protocol: Document 11/14/22 10:49 [facility] (Rec: 11/14/22 13:56 AB [id number]) PT-Bed Mobility Assessment Supine to Sit Supine to Sit Standby Assistance Sit to Supine Sit to Supine Standby Assistance PT-Transfer Assessment Sit to and From Stand Sit to and from Stand Standby Assistance,1 Person Assistance,Use of Upper Extremities Equipment Transfer Assistive Device Gait Belt,Front Wheeled Walker Orthotic/Prosthetic Devices or Brace: No Transfers Transfer Destination Bed,Chair Transfer Technique ambulated Transfer Ability Level of Assist Standby Assistance,1 Person Assistance,Use of Upper Extremities Comments Mobility Comments pt sitting on chair and agreed to do PT. Has slight DF on RLE but still weak and continues to have foot drop during walking. pt stated that RLE still feels like lead . BP: in sittin/70. completed sit to stand SBA and ambulated to EOB ~ 12 ft using FWW SBA. completed sit<> supine SBA. c/o slight dizziness. BP: 133/75. completed sit to stand SBA and ambulated to the hallway ~ 100 ft using fWW SBA. assisted pt to the stairs. educated with stair climbing using L rail and SPC. pt completed up/down steps using L rail + SPC SBA to CGA. pt refused to do another set. stated that she will direct her spouse on how to assist her and caregiver training is not needed. assisted pt back to her room. completed ambulated to the chair using fWW SBA. positioned pt on the chair. call light and table placed within reach. Gait Assessment Gait Gait Assistance Required: Standby Assistance Distance (Feet) 100 Able to Maintain Weight Bearing Status Yes During Gait Assistive Devices Assistive Device Gait Belt,Front Wheeled Walker Orthotic/Prosthetic Devices or Brace: No Gait Deviations General Gait Pattern Antalgic,Decreased Stride Length,Decreased Feet Clearance,Step-to Gait Factors Limiting Gait Function Factors Limiting Gait Function Decreased Activity Tolerance, Decreased Sensation,Decreased Strength,Limited Range of Motion,Pain,Poor Balance,Poor Safety Awareness Stair Climbing Assessment Evaluation Level of Assist On Stairs Standby Assistance,Contact Guard Assistance Devices Stair Climbing Assistive Devices Straight Cane,Left Railing Technique/Endurance Stair Climbing Direction Ascend and Descend Stair Climbing Technique Step to Step Number of Steps Climbed 3 Stair Climbing Set # Repetitions (reps) 1 M5 PT-IP Objective Assessments Start: 11/13/22 10:46 Freq: NEEDED Status: Active Protocol: Document 11/13/22 09:44 [facility] (Rec: 11/13/22 11:09 [facility] [id number]) Orientation Orientation/Cognition Level of Alertness Alert Orientation Name,Age,Birthday,Month,Date, Year,Day of Week,Place, Situation Language Function Ability No Deficits Noted Safety Awareness Understands Safety Issues Memory Description No Deficits Noted Gross Range of Motion Upper Extremity ROM Assessment Within Functional Limits Lower Extremity ROM Assessment Right Impaired Impairments right knee 5-90 degrees Strength Upper Extremity Strength Assessment Within Functional Limits Lower Extremity Strength Assessment Right Impaired Hip needs assist for straight leg raise Knee knee ext 2+/5, flex 3+/5 Ankle DF 0/5 Comments Strength Comments new post-op right ankle weakness, her nurse was notified and she is calling the surgeon to notify Coordination Assessment Gross Coordination Gross Coordination WNL Sensation Assessment Sensation Gross Sensation Right LE Impaired Comments Sensation Comments post-op numbness reported by pt in right LE Muscle Tone Muscle Tone WNL Yes M6 PT-IP Treatment Start: 11/13/22 10:46 Freq: NEEDED Status: Active Protocol: Document 11/14/22 10:49 [facility] (Rec: 11/14/22 13:56 AB [id number]) Physical Therapy Treatment Education Education Provided Safety M7 PT-IP Assessment and Plan Start: 11/13/22 10:46 Freq: NEEDED Status: Active Protocol: Document 11/14/22 10:49 [facility] (Rec: 11/14/22 13:56 AB [id number]) PT Summary Assessment and Plan Potential Rehabilitation Potential Good Summary Impairments Pain,ROM,Strength,Balance, Coordination,Sensation,Tone, Cognition,Bed Mobility, Transfers,Gait,Activity Tolerance Progress Towards Goals Slow Progress due to Medical Issues,Slow Progress due to Activity Tolerance Assessment Summary pt requiring SBA to CGA with mobility using FWW and will have spouse to assist her at home. pt may go home when medically stable. Goals Bed Mobility Goal Independent Transfer Goal Independent,Front Wheeled Walker Gait Goal Independent,Front Wheel Walker Gait Distance 75 feet Other Goals Up and down 6 steps with rail and cane, CG assist Days to Meet Goals 3 Frequency of Treatment Frequency Of Treatment Twice a Day Treatment Plan Physical Therapy Treatment Plan Bed Mobility Training,Transfer Training,Gait Training, Therapeutic Exercise,Balance Retraining,Post Op Education, Discharge Planning,Hot or Cold Pack,Neuromuscular Re-ed Weight Bearing Status Weight Bearing Status Weight Bear as Tolerated Allowed Weight Bearing Amount (enter % right LE or #) (%) Recommendations To Nursing Amount of Assist Needed 1 Person Assist Discharge Recommendations PT Discharge Recommendations Home with Assistance, Outpatient PT Transportation Needs at Discharge Private Vehicle
[2022-11-14] MEDS: ACETAMINOPHEN 325 MG TABLET 650 MG PO (12:50)
--- NOTE | 2022-11-14 14:33 | PC.NURSE ---
Patient is A&Ox3, She is up multiple times to [facility]. She reports pain to R knee, increased with movement she reports up to 7/10 pain. Pain is well controlled today with prn oxycodone. She is able to participate with therapy and mobilization is improved. She is cleared for discharge home today with her and FWW. She verbalizes understanding of medications, activity, site care, s/sx of infection/complication as well as follow up care. She is escorted by w/ch with all of her belongings to private vehicle with for discharge home this afternoon at 1325 pm.
== END 2022-11-14 13:25 | disposition home or self-care (01) ==
PROVIDERS: Admitting Provider Orthopaedic Surgery; PCP Nurse Practitioner Family; Referring Provider Family Medicine; Visit Provider Orthopaedic Surgery
PROC: 0SRC0JZ Replacement of Right Knee Joint with Synthetic Substitute, Open Approach (ICD-10-PCS; CPT 27447; principal; 2022-11-12 11:45)
DX: M17.11 Unilateral primary osteoarthritis, right knee (principal); G89.18 Other acute postprocedural pain; D50.0 Iron deficiency anemia secondary to blood loss (chronic)
CPT/HCPCS: 27447; 36415; 64450; 73560; 85014; 85018; 97116; 97162; 97530; C1776; G0378; C1713; C9290; J0690; J1100; J1170; J2250; J2270; J2405; J2704; J3010

== ENCOUNTER → 2023-01-19 11:08 | Outpatient (CLI) | payer MEDICARE, SELFPAY ==
[2022-11-12 14:09] VITALS: BMI 23.1
--- NOTE | 2023-01-19 | DI.MRI.S_ITS ---
PROCEDURE: MR LUMBAR SPINE WO CON INDICATIONS: Low back pain, unspecified TECHNIQUE: Noncontrast sagittal T1 spin echo and T2 fast echo, sagittal STIR, and T2 fast spin echo through the lumbar spine. In cases with scoliosis, additional coronal T2 fast spin echo may be performed. COMPARISON: None. FINDINGS: Image quality: Excellent. Alignment and Curvature: There is normal bony alignment. Bone Marrow: Marrow is of normal overall signal. No acute vertebral body compression fractures. Spinal Cord: Conus medullaris terminates at the L1 level. Visualized cord demonstrates normal signal and size. Paraspinous Soft Tissues: No paravertebral masses. T12-L1: No significant disc bulge. The foramina and central canal are patent. L1-L2: No significant disc bulge. The foramina and central canal are patent. L2-L3: No significant disc bulge. The foramina and central canal are patent. L3-L4: Disc space narrowing and diffuse disc bulge causes moderate bilateral foraminal stenosis. The central canal is patent. L4-L5: Disc space narrowing and diffuse disc bulge causes moderate bilateral foraminal stenosis. The central canal is patent. L5-S1: No significant disc bulge. The foramina and central canal are patent. IMPRESSION: Degenerative disc disease of L3-4 and L4-5 causing moderate bilateral foraminal stenosis at these levels. Dictated by: Nahid Miller M.D. on 01/19/2023 at 14:00 Approved by: Nahid Miller M.D. on 01/19/2023 at 14:02
== END ==
PROVIDERS: PCP Nurse Practitioner Family; Referring Provider Physical Medicine & Rehabilitation; Visit Provider Physical Medicine & Rehabilitation
DX: M51.36 Other intervertebral disc degeneration, lumbar region (principal); M48.061 Spinal stenosis, lumbar region without neurogenic claudication; M54.50 Low back pain, unspecified
CPT/HCPCS: 72148

== ENCOUNTER 2024-11-28 08:15 | Outpatient (RCR) | payer MEDICARE, SELFPAY ==
[2022-11-12 14:09] VITALS: BMI 23.1
--- NOTE | 2024-09-16 19:59 | PT.OIE ---
Current Diagnoses Muscle weakness (generalized) (09/16/24) Trochanteric bursitis, left hip (09/16/24) Overactive bladder (09/16/24) Urge incontinence (09/16/24) Past Medical History (Last Updated 11/11/22 @ 09:36 by Elvia Christine RN) Anemia COVID-19 virus infection Dry skin GERD (gastroesophageal reflux disease) Gluten intolerance Hypothyroidism Osteoarthritis Past Surgical History (Last Updated 11/11/22 @ 09:35 by Elvia Christine RN) History of total left knee replacement (09/19/19) Hx of tonsillectomy Visit Care Team Role Provider Type VELIA Antonio Family Provider Non-Staff Primary Care Provider Specialty: Medical Address: [address] [place] [address], [id number] Email: Abdon Headley Attending Provider Non-Staff Referring Provider Specialty: SAMPLE SEWER Address: [address] [place] [address], [address] Email: Physical Therapy Initial Evaluation PT-OP-A Visit Information Start: 09/06/24 18:12 Freq: Status: Active Protocol: Document 09/16/24 08:18 LRN (Rec: 09/16/24 09:06 LRN [id number]) Out-Patient Physical Therapy Visit Information Visit Information Visit Type Initial Evaluation Visit Note Pt is from [place], [place] ([place] miles [place] of [place], [facility]). Visit Start Time 08:18 Visit Stop Time 09:03 Visit Number 1 Evaluation Information Evaluation Date 09/16/24 Precautions Precautions Pt reported PMH: Back pain from bad discs (? L3-L4, L4- -L5) - 1.5 yrs ago. 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 Back pain is resolved 80%. PT-OP-B Current Condition Start: 09/06/24 18:12 Freq: Status: Active Protocol: Document 09/16/24 08:18 LRN (Rec: 09/16/24 09:06 LRN [id number]) Current Condition History of Current Condition Onset Date 11/2023 Current Complaints Urge incontinence. History of Current Condition Pt reports previously she had PF physical therapy at [facility] (6-8 sessions) and improve 95%, then she got a yeast infection and now feels like she is starting over again. Yeast infection -02/2024, but now has urge issues along with triggers ( carbonated beverages). Estimates drinking 8 glassess of water a day (no caffeine or alcohol). She is taking estrodial that has allowed her to have intercourse again. PT lives in [place], [place] where she is being seen for L hip Bursitis and tenderness and tenderness of the L knee. Prior Treatments and Tests She receive chiropractic treatments as needed. Treatment Goals Patient/Caregiver Goals Pt goals: -Return to prior level: 95% continence level with urgency 1-2x/wk. -Not wetting pants as much. 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 Leaks Per Day 4x/wk Voiding Frequency 8x/day Nocturia 2x Urine Pad Type Panty Liner Bowel Other Bowel Symptoms Diarrhea (IBS) Pelvic Clock Pelvic Clock Other Tenderness Pelvic clock 7-8 Prolapse Cystocele Grade 2 Rectocele Grade 1 Perineal Descent Bearing Present Contraction Ability Voluntary Contraction Weak Manual Muscle Testing Left 2 Manual Muscle Testing Right 3 Manual Muscle Testing Anterior 2 Manual Muscle Testing Posterior 2 Muscle Endurance (Seconds) 4 Number of Quick Contractions In 10 4 Seconds PT-OP-J Posture/Palpation/Skin Start: 09/06/24 18:12 Freq: Status: Active Protocol: Document 09/16/24 08:18 LRN (Rec: 09/16/24 09:06 LRN [id number]) Posture Evaluation Position Standing T-Spine Posture Increased Kyphosis L-Spine Posture Increased Lordosis Shoulder Posture (L) Elevated Pelvis Posture Anteriorly Tilted,(L) Iliac Crest Superior Weight Distribution Weight Shifted Right PT-OP-K Range of Motion Start: 09/06/24 18:12 Freq: Status: Active Protocol: Document 09/16/24 08:18 LRN (Rec: 09/16/24 09:06 LRN [id number]) Lumbar Spine Range of Motion Lumbar Spine Active Degrees Testing Position Standing Flexion 105 Extension 15 Rotation Left 10 Rotation Right 15 Lateral Flexion Left 10 Lateral Flexion Right 10 Comments Stiffness restricts mobility. Hip Goniometric Range of Motion Hip Right Passive Testing Position Supine Abduction 30 Internal Rotation 40 External Rotation 70 Left Passive Testing Position Supine Abduction 30 Internal Rotation 25 External Rotation 65 PT-OP-M Strength Start: 09/06/24 18:12 Freq: Status: Active Protocol: Document 09/16/24 08:18 LRN (Rec: 09/16/24 09:06 LRN [id number]) Hip Strength Hip Manual Muscle Testing Right External Rotation 4- Good- Comments Strength is generally 5/5 except as indicated above. Left Extension (S1) 3+ Fair+ Internal Rotation 2- Poor- Comments Strength is generally 5/5 except as indicated above. L hip pain with sidelie. PT-OP-Q Treatments Start: 09/06/24 18:12 Freq: Status: Active Protocol: Document 09/16/24 08:18 LRN (Rec: 09/16/24 09:06 LRN [id number]) Self-Care/Home Management Treatment Education Other Education Discussed results of evaluation, goals, treatment, and plan of care (POC) with pt , discussed attendance/cx/dns policy; pt agreeable to evaluation, goals, treatment, attendance/cx/dns policy and POC. Discussed and educated pt in specifics for completion of in use of Bladder Diary and I/S in tracking for 1 week. Educated pt in urge deference technique for controlling leakage with an urge. Activities Self-Care/Home Management Activities Issued & reviewed HEP: Myrongel ex's and discussed exercise of Quick Flicks, Long Holds and Aggravators. Issued and reviewed Urge deference technique. PT-OP-T Assessment and Plan Start: 09/06/24 18:12 Freq: Status: Active Protocol: Document 09/16/24 08:18 LRN (Rec: 09/16/24 09:06 LRN [id number]) Physical Therapy Assessment Rehab Potential Rehabilitation Potential Good Evaluation Complexity Number of Personal Factors/Comorbidities 3 or More Number of Body Systems Impaired 4 or More Clinical Presentation at Evaluation Evolving Impairments Impairments Activity Tolerance,Pain, Posture,ROM,Soft Tissue Mobility,Strength,Transfers Goals Three Impairment Urinary leakage resulting in wetting of pants (~4x/week) Short Term Goal (STG) Pt will be educated in urge deference technique and be able to reduce wetting of pants to 2-3x/week. STG Duration 10/28/24 Hand Embroiderer Goal (LTG) Improve bladder control with pt not wetting pants more than 1-2x/wk. LTG Duration 12/09/24 Two Impairment Urge urinary incontinece ( leaks ~4x/week w/urge) Care Home Goal (LTG) Improve PF strength with pt level of continence at her prior level: 95% continence level with urgency 1-2x/wk. LTG Duration 12/09/24 One Impairment Pt lacks an independent self care HEP. Short Term Goal (STG) Pt will be educated and able to demonstrate transfers to lessen core abdominal pressure . STG Duration 10/28/24 Care Home Goal (LTG) Pt will be independent in a self care HEP for PF/hip (L ext/IR, R slightly ER) strengthening, hip(L IR/ER)/ trunk (L rot) mobility ex's. 09/16/24: HEP: Kegel Quick, Long hold strengthening. LTG Duration 12/09/24 Assessment Summary Assessment Pt is a 69 yo female who presents with urge urinary incontinence, L hip bursitis, LBP, and lower abdominal pain. The pt has decreased PF strength and lacks knowledge to help control urination with a stong urge. Additionally, she demonstrates decreased L hip mobility (L IR/ER) and strength (L ext/IR, R slightly ER) and trunk L rot, probably exacerbated by ongoing L hip bursitis. 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 The pt will benefit from skilled physical therapy to work towards achieving the above stated goals. Physical Therapy Plan Frequency and Duration Frequency of Treatment 1x/Week Duration of treatment (weeks) 12 Plan of Care Start Date 09/16/24 Plan of Care End Date 12/09/24 Therapeutic Interventions Therapeutic Interventions Home Exercise Program,Manual Therapy,Neuromuscular Re- education,Self-Care/Home Management,Soft Tissue Mobilization,Therapeutic Activities,Therapeutic Exercises Next Visit Focus/Plan Next Note Type Treatment Note Next Visit Plan Recheck PF strength, endurance . Review Bladder dairy and discussed fluid intake (AM/PM) , nighttime voiding frequency; pt education in urge deference technique and bladder retraining if needed. Kegel on wedge without use of substitute muscles, core pressure management, deep breathing, and proper coordinated breathing with transfers and body mechanics. Ther Ex: PF/hip strengthening , L hip mobility (L IR/ER) and strength (L ext/IR, R slightly ER) and trunk L rot, Educate/discuss water intake, proper sit to stand, and moving in bed using breathwork and core/PF stabilization for proper abdominal pressure system, education in pain mgmt (cryotherapy to L hip). STM of LB, abdomen (and urachus) & bladder mobility, L TFL/IT Band. Modalities: US for L hip bursitis. POC: Pt education, Manual therapy, Therapeutic Exercises , Therapeutic Activities, Neuromuscular Reeducation, HEP .
--- NOTE | 2024-09-16 20:01 | PT.OPPOC ---
Physical, Occupational & Speech Therapy At [facility] Current Diagnoses Muscle weakness (generalized) (09/16/24) Trochanteric bursitis, left hip (09/16/24) Overactive bladder (09/16/24) Urge incontinence (09/16/24) Visit Care Team Role Provider Type VELIA Antonio Family Provider Non-Staff Primary Care Provider Specialty: Medical Address: [address] [place] [address], [id number] Email: Abdon Headley Attending Provider Non-Staff Referring Provider Specialty: INTERN RETAIL Address: [address] [place] [address], [id number] Email: Plan Of Care PT-OP-B Current Condition Start: 09/06/24 18:12 Freq: Status: Active Protocol: Document 09/16/24 08:18 LRN (Rec: 09/16/24 09:06 LRN [id number]) Current Condition History of Current Condition Onset Date 11/2023 Current Complaints Urge incontinence. History of Current Condition Pt reports previously she had PF physical therapy at [facility] (6-8 sessions) and improve 95%, then she got a yeast infection and now feels like she is starting over again. Yeast infection -02/2024, but now has urge issues along with triggers ( carbonated beverages). Estimates drinking 8 glassess of water a day (no caffeine or alcohol). She is taking estrodial that has allowed her to have intercourse again. PT lives in [place], [place] where she is being seen for L hip Bursitis and tenderness and tenderness of the L knee. Prior Treatments and Tests She receive chiropractic treatments as needed. Treatment Goals Patient/Caregiver Goals Pt goals: -Return to prior level: 95% continence level with urgency 1-2x/wk. -Not wetting pants as much. 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 PT-OP-T Assessment and Plan Start: 09/06/24 18:12 Freq: Status: Active Protocol: Document 09/16/24 08:18 LRN (Rec: 09/16/24 09:06 LRN [id number]) Physical Therapy Assessment Rehab Potential Rehabilitation Potential Good Evaluation Complexity Number of Personal Factors/Comorbidities 3 or More Number of Body Systems Impaired 4 or More Clinical Presentation at Evaluation Evolving Impairments Impairments Activity Tolerance,Pain, Posture,ROM,Soft Tissue Mobility,Strength,Transfers Goals Three Impairment Urinary leakage resulting in wetting of pants (~4x/week) Short Term Goal (STG) Pt will be educated in urge deference technique and be able to reduce wetting of pants to 2-3x/week. STG Duration 10/28/24 Retirement Goal (LTG) Improve bladder control with pt not wetting pants more than 1-2x/wk. LTG Duration 12/09/24 Two Impairment Urge urinary incontinece ( leaks ~4x/week w/urge) Metal Fitter Goal (LTG) Improve PF strength with pt level of continence at her prior level: 95% continence level with urgency 1-2x/wk. LTG Duration 12/09/24 One Impairment Pt lacks an independent self care HEP. Short Term Goal (STG) Pt will be educated and able to demonstrate transfers to lessen core abdominal pressure . STG Duration 10/28/24 Retirement Goal (LTG) Pt will be independent in a self care HEP for PF/hip (L ext/IR, R slightly ER) strengthening, hip(L IR/ER)/ trunk (L rot) mobility ex's. 09/16/24: HEP: Kegel Quick, Long hold strengthening. LTG Duration 12/09/24 Assessment Summary Assessment Pt is a 69 yo female who presents with urge urinary incontinence, L hip bursitis, LBP, and lower abdominal pain. The pt has decreased PF strength and lacks knowledge to help control urination with a stong urge. Additionally, she demonstrates decreased L hip mobility (L IR/ER) and strength (L ext/IR, R slightly ER) and trunk L rot, probably exacerbated by ongoing L hip bursitis. 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 The pt will benefit from skilled physical therapy to work towards achieving the above stated goals. Physical Therapy Plan Frequency and Duration Frequency of Treatment 1x/Week Duration of treatment (weeks) 12 Plan of Care Start Date 09/16/24 Plan of Care End Date 12/09/24 Therapeutic Interventions Therapeutic Interventions Home Exercise Program,Manual Therapy,Neuromuscular Re- education,Self-Care/Home Management,Soft Tissue Mobilization,Therapeutic Activities,Therapeutic Exercises Next Visit Focus/Plan Next Note Type Treatment Note Next Visit Plan Recheck PF strength, endurance . Review Bladder dairy and discussed fluid intake (AM/PM) , nighttime voiding frequency; pt education in urge deference technique and bladder retraining if needed. Kegel on wedge without use of substitute muscles, core pressure management, deep breathing, and proper coordinated breathing with transfers and body mechanics. Ther Ex: PF/hip strengthening , L hip mobility (L IR/ER) and strength (L ext/IR, R slightly ER) and trunk L rot, Educate/discuss water intake, proper sit to stand, and moving in bed using breathwork and core/PF stabilization for proper abdominal pressure system, education in pain mgmt (cryotherapy to L hip). STM of LB, abdomen (and urachus) & bladder mobility, L TFL/IT Band. Modalities: US for L hip bursitis. POC: Pt education, Manual therapy, Therapeutic Exercises , Therapeutic Activities, Neuromuscular Reeducation, HEP . Plan of Care Dates Plan of Care Start Date 09/16/24 Plan of Care End Date 12/09/24 Electronically Signed by: Michelle Willson, PT 09/16/242000 If you are in agreement with this Plan of Care, please return a signed and dated copy. I have reviewed this Plan of Care and certify that the skilled therapy services above are required to meet the patient?s needs. Physician Signature Date Printed Name and Credentials Clinical Instructor Signature Printed Name and Credentials
--- NOTE | 2024-09-23 17:11 | PT.OTN ---
Current Diagnoses Muscle weakness (generalized) (09/23/24) Trochanteric bursitis, left hip (09/23/24) Overactive bladder (09/23/24) Urge incontinence (09/23/24) Physical Therapy Treatment Note PT-OP-A Visit Information Start: 09/06/24 18:12 Freq: Status: Active Protocol: Document 09/23/24 08:20 LRN (Rec: 09/23/24 09:06 LRN [id number]) Out-Patient Physical Therapy Visit Information Visit Information Visit Type Treatment Note Visit Start Time 08:20 Visit Stop Time 09:03 Visit Number 2 Evaluation Information Evaluation Date 09/16/24 Precautions Precautions Pt reported PMH: Back pain from bad discs (? L3-L4, L4- -L5) - 1.5 yrs ago. 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 Back pain is resolved 80%. PT-OP-B Current Condition Start: 09/06/24 18:12 Freq: Status: Active Protocol: Document 09/16/24 08:18 LRN (Rec: 09/16/24 09:06 LRN [id number]) Current Condition History of Current Condition Onset Date 11/2023 Current Complaints Urge incontinence. History of Current Condition Pt reports previously she had PF physical therapy at [facility] (6-8 sessions) and improve 95%, then she got a yeast infection and now feels like she is starting over again. Yeast infection -02/2024, but now has urge issues along with triggers ( carbonated beverages). Estimates drinking 8 glassess of water a day (no caffeine or alcohol). She is taking estrodial that has allowed her to have intercourse again. PT lives in [place], [place] where she is being seen for L hip Bursitis and tenderness and tenderness of the L knee. Prior Treatments and Tests She receive chiropractic treatments as needed. Treatment Goals Patient/Caregiver Goals Pt goals: -Return to prior level: 95% continence level with urgency 1-2x/wk. -Not wetting pants as much. Personal Factors Other Personal Factors That May Effect Takes 1 hr to get to [facility] from her home. 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 PT-OP-C Subjective Start: 09/06/24 18:12 Freq: Status: Active Protocol: Document 09/16/24 08:18 LRN (Rec: 09/16/24 09:06 LRN [id number]) Patient Questionnaires Pelvic Pain and Urgency/Frequency Patient Symptom Scale Pelvic Pain Score 9 PT-OP-I Pelvic Floor Start: 09/06/24 18:12 Freq: Status: Active Protocol: Document 09/23/24 08:20 LRN (Rec: 09/23/24 17:07 LRN [id number]) Pelvic Floor Assessment Prolapse Cystocele Grade 2 Urethrocele Grade 1 Perineal Descent Resting Absent Bearing Present Contraction Ability Voluntary Contraction Weak Manual Muscle Testing Left 2 Manual Muscle Testing Right 1 Manual Muscle Testing Anterior 2 Manual Muscle Testing Posterior 2 Muscle Endurance (Seconds) 4 Number of Quick Contractions In 10 4 Seconds Comments Pelvic Floor Comments No tenderness of PF clock PT-OP-J Posture/Palpation/Skin Start: 09/06/24 18:12 Freq: Status: Active Protocol: Document 09/16/24 08:18 LRN (Rec: 09/16/24 09:06 LRN [id number]) Posture Evaluation Position Standing T-Spine Posture Increased Kyphosis L-Spine Posture Increased Lordosis Shoulder Posture (L) Elevated Pelvis Posture Anteriorly Tilted,(L) Iliac Crest Superior Weight Distribution Weight Shifted Right PT-OP-K Range of Motion Start: 09/06/24 18:12 Freq: Status: Active Protocol: Document 09/16/24 08:18 LRN (Rec: 09/16/24 09:06 LRN [id number]) Lumbar Spine Range of Motion Lumbar Spine Active Degrees Testing Position Standing Flexion 105 Extension 15 Rotation Left 10 Rotation Right 15 Lateral Flexion Left 10 Lateral Flexion Right 10 Comments Stiffness restricts mobility. Hip Goniometric Range of Motion Hip Right Passive Testing Position Supine Abduction 30 Internal Rotation 40 External Rotation 70 Left Passive Testing Position Supine Abduction 30 Internal Rotation 25 External Rotation 65 PT-OP-M Strength Start: 09/06/24 18:12 Freq: Status: Active Protocol: Document 09/16/24 08:18 LRN (Rec: 09/16/24 09:06 LRN [id number]) Hip Strength Hip Manual Muscle Testing Right External Rotation 4- Good- Comments Strength is generally 5/5 except as indicated above. Left Extension (S1) 3+ Fair+ Internal Rotation 2- Poor- Comments Strength is generally 5/5 except as indicated above. L hip pain with sidelie. PT-OP-Q Treatments Start: 09/06/24 18:12 Freq: Status: Active Protocol: Document 09/23/24 08:20 LRN (Rec: 09/23/24 09:06 LRN [id number]) Therapeutic Exercises Supine Exercises Quick Kegels Reps/Minutes 1-2 SH/1-2 SR x 6 (2 sets) Long hold Kegels Reps/Minutes 10 SH/ 20 SR x 5 Sitting Exercises Deep Breathing Sitting Exercise Name During urge deference training Reps/Minutes 2' Therapeutic Activity Therapeutic Activity Bladder retraining Name Urge Deference tech for bladder retraining x 2 Reps/Minutes 11' Comments Pt able to go to BR without urge for 6 secs urination. Self-Care/Home Management Treatment Education Other Education 20' Reviewed Bladder dairy and discussed at length her fluid intake (AM/PM, and type of fluids - quinine and a lemon/baking soda mix), bowel movement and urination frequency, & daytime/nighttime voiding frequency. Discussed pt's drinks for ms cramping ( tonic water w/quinine in it). REcommended pt talk to her primary care regarding the ms cramps and what she is taking. Discussed Bowel system.PF anatomy and cystocele, rectocele and interaction when voiding. PT-OP-T Assessment and Plan Start: 09/06/24 18:12 Freq: Status: Active Protocol: Document 09/23/24 08:20 [id number] (Rec: 09/23/24 09:06 LRN [id number]) Physical Therapy Assessment Goals Three Impairment Urinary leakage resulting in wetting of pants (~4x/week) Short Term Goal (STG) Pt will be educated in urge deference technique and be able to reduce wetting of pants to 2-3x/week. 09/23/24: Pt educated in urge deference technique. STG Duration 10/28/24 progressed 09/23/24 Residential Goal (LTG) Improve bladder control with pt not wetting pants more than 1-2x/wk. LTG Duration 12/09/24 Two Impairment Urge urinary incontinece ( leaks ~4x/week w/urge) Rail Walker Goal (LTG) Improve PF strength with pt level of continence at her prior level: 95% continence level with urgency 1-2x/wk. LTG Duration 12/09/24 One Impairment Pt lacks an independent self care HEP. Short Term Goal (STG) Pt will be educated and able to demonstrate transfers to lessen core abdominal pressure . STG Duration 10/28/24 Rail Walker Goal (LTG) Pt will be independent in a self care HEP for PF/hip (L ext/IR, R slightly ER) strengthening, hip(L IR/ER)/ trunk (L rot) mobility ex's. 09/16/24: HEP: Kegel Quick, Long hold strengthening. LTG Duration 12/09/24 Assessment Summary Assessment Realizes when she leaks when trying to sit and on toilet with void, then has BM. Thinks her supplement irritates her bladder, because and marilu after first AM voiding she takes her Thyroid medication (after 15'), then takes supplements with breakfast (after doing yoga). Water aerobics voids, then can't do an hour class without voiding (after 45' needs to void). Physical Therapy Plan Frequency and Duration Frequency of Treatment 1x/Week Duration of treatment (weeks) 12 Plan of Care Start Date 09/16/24 Plan of Care End Date 12/09/24 Next Visit Focus/Plan Next Note Type Treatment Note Next Visit Plan Assess response to urge deference technique for bladder retraining. Kegel on wedge without use of substitute muscles. Pt education of deep breathing , and education in core pressure mgmt of coordinated breathing with transfers and body mechanics. Ther Ex: PF/hip strengthening , L hip mobility (L IR/ER) and strength (L ext/IR, R slightly ER) and trunk L rot, Educate/discuss water intake, proper sit to stand, and moving in bed using breathwork and core/PF stabilization for proper abdominal pressure system, education in pain mgmt (cryotherapy to L hip). STM of LB, abdomen (and urachus) & bladder mobility, L TFL/IT Band. Modalities: US for L hip bursitis. POC: Pt education, Manual therapy, Therapeutic Exercises , Therapeutic Activities, Neuromuscular Reeducation, HEP .
--- NOTE | 2024-09-30 16:54 | PT.OTN ---
Current Diagnoses Muscle weakness (generalized) (09/30/24) Trochanteric bursitis, left hip (09/30/24) Overactive bladder (09/30/24) Urge incontinence (09/30/24) Physical Therapy Treatment Note PT-OP-A Visit Information Start: 09/06/24 18:12 Freq: Status: Active Protocol: Document 09/30/24 08:19 LRN (Rec: 09/30/24 09:06 LRN [id number]) Out-Patient Physical Therapy Visit Information Visit Information Visit Type Treatment Note Visit Note Pt is from [place], [place] ([place] of [place], [facility] and [place]). Visit Start Time 08:19 Visit Stop Time 09:03 Visit Number Evaluation Information Evaluation Date 09/16/24 Precautions Precautions Pt reported PMH: Back pain from bad discs (? L3-L4, L4- -L5) - 1.5 yrs ago. 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 Back pain is resolved 80%. PT-OP-B Current Condition Start: 09/06/24 18:12 Freq: Status: Active Protocol: Document 09/16/24 08:18 LRN (Rec: 09/16/24 09:06 LRN [id number]) Current Condition History of Current Condition Onset Date 11/2023 Current Complaints Urge incontinence. History of Current Condition Pt reports previously she had PF physical therapy at [facility] (6-8 sessions) and improve 95%, then she got a yeast infection and now feels like she is starting over again. Yeast infection -02/2024, but now has urge issues along with triggers ( carbonated beverages). Estimates drinking 8 glassess of water a day (no caffeine or alcohol). She is taking estrodial that has allowed her to have intercourse again. PT lives in [place], [place] where she is being seen for L hip Bursitis and tenderness and tenderness of the L knee. Prior Treatments and Tests She receive chiropractic treatments as needed. Treatment Goals Patient/Caregiver Goals Pt goals: -Return to prior level: 95% continence level with urgency 1-2x/wk. -Not wetting pants as much. 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 Noticed the electrolite drink is a trigger to urinate. Drinks it starting at lunch and sometimes throughout the day. Vitamens first in morning might irritate the bladder. PT-OP-I Pelvic Floor Start: 09/06/24 18:12 Freq: Status: Active Protocol: Document 09/23/24 08:20 LRN (Rec: 09/23/24 17:07 LRN [id number]) Pelvic Floor Assessment Prolapse Cystocele Grade 2 Urethrocele Grade 1 Perineal Descent Resting Absent Bearing Present Contraction Ability Voluntary Contraction Weak Manual Muscle Testing Left 2 Manual Muscle Testing Right 1 Manual Muscle Testing Anterior 2 Manual Muscle Testing Posterior 2 Muscle Endurance (Seconds) 4 Number of Quick Contractions In 10 4 Seconds Comments Pelvic Floor Comments No tenderness of PF clock PT-OP-J Posture/Palpation/Skin Start: 09/06/24 18:12 Freq: Status: Active Protocol: Document 09/16/24 08:18 LRN (Rec: 09/16/24 09:06 LRN [id number]) Posture Evaluation Position Standing T-Spine Posture Increased Kyphosis L-Spine Posture Increased Lordosis Shoulder Posture (L) Elevated Pelvis Posture Anteriorly Tilted,(L) Iliac Crest Superior Weight Distribution Weight Shifted Right PT-OP-K Range of Motion Start: 09/06/24 18:12 Freq: Status: Active Protocol: Document 09/16/24 08:18 LRN (Rec: 09/16/24 09:06 LRN [id number]) Lumbar Spine Range of Motion Lumbar Spine Active Degrees Testing Position Standing Flexion 105 Extension 15 Rotation Left 10 Rotation Right 15 Lateral Flexion Left 10 Lateral Flexion Right 10 Comments Stiffness restricts mobility. Hip Goniometric Range of Motion Hip Right Passive Testing Position Supine Abduction 30 Internal Rotation 40 External Rotation 70 Left Passive Testing Position Supine Abduction 30 Internal Rotation 25 External Rotation 65 PT-OP-M Strength Start: 09/06/24 18:12 Freq: Status: Active Protocol: Document 09/16/24 08:18 LRN (Rec: 09/16/24 09:06 LRN [id number]) Hip Strength Hip Manual Muscle Testing Right External Rotation 4- Good- Comments Strength is generally 5/5 except as indicated above. Left Extension (S1) 3+ Fair+ Internal Rotation 2- Poor- Comments Strength is generally 5/5 except as indicated above. L hip pain with sidelie. PT-OP-Q Treatments Start: 09/06/24 18:12 Freq: Status: Active Protocol: Document 09/30/24 08:19 LRN (Rec: 09/30/24 09:06 LRN [id number]) Therapeutic Exercises Supine Exercises Wedge/isolated Supine Exercise Name Wedge/Isolated Kegel Equipment Used Wedge. TB around legs Comments Much cuing to keep relaxed and abdomen from tightening Wedge/Kegel/resting breathing Supine Exercise Name Working on isolated Kegel w/o abdomen/chest tightening, labored breathing Equipment Used Wedge. TB around legs Comments Much cuing to keep abdomen from tightening and breathing labored Self-Care/Home Management Treatment Education Other Education Reviewed and discussed pt's bladder diary at length, regarding voiding times (6 or less secs), BM's driving more urination, BM's possibly not fully emptying if pt not taking time on commode, times between voids (max 2 hrs when pt at work or in activities, but at home every hour), electrolytes that may be bladder irriatants. Discussed that pt is able to hold to void every 2 hrs and when at work longer, so it is possible to retrain the bladder. Discussed with pt the need to spend more time at home to work on bladder retraining, requesting she commit to a week to retrain. Pt agreeable to try but not willing to give up exercise and certain social activities. PT-OP-T Assessment and Plan Start: 09/06/24 18:12 Freq: Status: Active Protocol: Document 09/30/24 08:19 LRN (Rec: 09/30/24 09:06 LRN [id number]) Physical Therapy Assessment Goals Three Impairment Urinary leakage resulting in wetting of pants (~4x/week) Short Term Goal (STG) Pt will be educated in urge deference technique and be able to reduce wetting of pants to 2-3x/week. 09/23/24: Pt educated in urge deference technique. STG Duration 10/28/24 progressed 09/23/24 Pre K Teacher Goal (LTG) Improve bladder control with pt not wetting pants more than 1-2x/wk. LTG Duration 12/09/24 Two Impairment Urge urinary incontinece ( leaks ~4x/week w/urge) Pre K Teacher Goal (LTG) Improve PF strength with pt level of continence at her prior level: 95% continence level with urgency 1-2x/wk. LTG Duration 12/09/24 One Impairment Pt lacks an independent self care HEP. Short Term Goal (STG) Pt will be educated and able to demonstrate transfers to lessen core abdominal pressure . STG Duration 10/28/24 Assisted Goal (LTG) Pt will be independent in a self care HEP for PF/hip (L ext/IR, R slightly ER) strengthening, hip(L IR/ER)/ trunk (L rot) mobility ex's. 09/16/24: HEP: Kegel Quick, Long hold strengthening. 09/30/24: Trning on deep breathing. 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 Today, during therapy pt was able to control her mild urge sup>sit>stand with the urge deference technique, but much education was needed for pt to understand the process of bladder retraining, as pt has a very active lifestyle of activities away from the home. Pt to work on holding off urinating for 1.15 hr after PT session today. She can isolate Kegels with less labored breathing after much training. She was able to relax with deep breathing, but noted she mildly increased once coming to sit/stand. Further training may be needed . Physical Therapy Plan Frequency and Duration Frequency of Treatment 1x/Week Duration of treatment (weeks) 12 Plan of Care Start Date 09/16/24 Plan of Care End Date 12/09/24 Next Visit Focus/Plan Next Note Type Treatment Note Next Visit Plan Cont Kegel on wedge without use of substitute muscles. Review deep breathing, and education in core pressure mgmt of coordinated breathing with transfers and body mechanics. Ther Ex: PF/hip strengthening , L hip mobility (L IR/ER) and strength (L ext/IR, R slightly ER) and trunk L rot, Educate/discuss water intake, proper sit to stand, and moving in bed using breathwork and core/PF stabilization for proper abdominal pressure system, education in pain mgmt (cryotherapy to L hip). STM of LB, abdomen (and urachus) & bladder mobility, L TFL/IT Band. Modalities: US for L hip bursitis. POC: Pt education, Manual therapy, Therapeutic Exercises , Therapeutic Activities, Neuromuscular Reeducation, HEP .
--- NOTE | 2024-10-07 18:30 | PT.OTN ---
Current Diagnoses Muscle weakness (generalized) (10/07/24) Trochanteric bursitis, left hip (10/07/24) Overactive bladder (10/07/24) Urge incontinence (10/07/24) Physical Therapy Treatment Note PT-OP-A Visit Information Start: 09/06/24 18:12 Freq: Status: Active Protocol: Document 10/07/24 08:20 LRN (Rec: 10/07/24 09:06 LRN [id number]) Out-Patient Physical Therapy Visit Information Visit Information Visit Type Treatment Note Visit Note Pt is from [place], [place] ([place] north of [place], [facility] [place], [facility] and [place]). Visit Start Time 08:20 Visit Stop Time 09:04 Visit Number Evaluation Information Evaluation Date 09/16/24 Precautions Precautions Pt reported PMH: Back pain from bad discs (? L3-L4, L4- -L5) - 1.5 yrs ago. 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 Back pain is resolved 80%. PT-OP-B Current Condition Start: 09/06/24 18:12 Freq: Status: Active Protocol: Document 09/16/24 08:18 LRN (Rec: 09/16/24 09:06 LRN [id number]) Current Condition History of Current Condition Onset Date 11/2023 Current Complaints Urge incontinence. History of Current Condition Pt reports previously she had PF physical therapy at [facility] (6-8 sessions) and improve 95%, then she got a yeast infection and now feels like she is starting over again. Yeast infection -02/2024, but now has urge issues along with triggers ( carbonated beverages). Estimates drinking 8 glassess of water a day (no caffeine or alcohol). She is taking estrodial that has allowed her to have intercourse again. PT lives in [place], [place] where she is being seen for L hip Bursitis and tenderness and tenderness of the L knee. Prior Treatments and Tests She receive chiropractic treatments as needed. Treatment Goals Patient/Caregiver Goals Pt goals: -Return to prior level: 95% continence level with urgency 1-2x/wk. -Not wetting pants as much. Personal Factors Other Personal Factors That May Effect Takes 1 hr to get to [facility] from her home. 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 Knows her lemon juice in her drink causes her to urinate frequently. PT-OP-I Pelvic Floor Start: 09/06/24 18:12 Freq: Status: Active Protocol: Document 09/23/24 08:20 LRN (Rec: 09/23/24 17:07 LRN [id number]) Pelvic Floor Assessment Prolapse Cystocele Grade 2 Urethrocele Grade 1 Perineal Descent Resting Absent Bearing Present Contraction Ability Voluntary Contraction Weak Manual Muscle Testing Left 2 Manual Muscle Testing Right 1 Manual Muscle Testing Anterior 2 Manual Muscle Testing Posterior 2 Muscle Endurance (Seconds) 4 Number of Quick Contractions In 10 4 Seconds Comments Pelvic Floor Comments No tenderness of PF clock PT-OP-J Posture/Palpation/Skin Start: 09/06/24 18:12 Freq: Status: Active Protocol: Document 09/16/24 08:18 LRN (Rec: 09/16/24 09:06 LRN [id number]) Posture Evaluation Position Standing T-Spine Posture Increased Kyphosis L-Spine Posture Increased Lordosis Shoulder Posture (L) Elevated Pelvis Posture Anteriorly Tilted,(L) Iliac Crest Superior Weight Distribution Weight Shifted Right PT-OP-K Range of Motion Start: 09/06/24 18:12 Freq: Status: Active Protocol: Document 09/16/24 08:18 LRN (Rec: 09/16/24 09:06 LRN [id number]) Lumbar Spine Range of Motion Lumbar Spine Active Degrees Testing Position Standing Flexion 105 Extension 15 Rotation Left 10 Rotation Right 15 Lateral Flexion Left 10 Lateral Flexion Right 10 Comments Stiffness restricts mobility. Hip Goniometric Range of Motion Hip Right Passive Testing Position Supine Abduction 30 Internal Rotation 40 External Rotation 70 Left Passive Testing Position Supine Abduction 30 Internal Rotation 25 External Rotation 65 PT-OP-M Strength Start: 09/06/24 18:12 Freq: Status: Active Protocol: Document 09/16/24 08:18 LRN (Rec: 09/16/24 09:06 LRN [id number]) Hip Strength Hip Manual Muscle Testing Right External Rotation 4- Good- Comments Strength is generally 5/5 except as indicated above. Left Extension (S1) 3+ Fair+ Internal Rotation 2- Poor- Comments Strength is generally 5/5 except as indicated above. L hip pain with sidelie. PT-OP-Q Treatments Start: 09/06/24 18:12 Freq: Status: Active Protocol: Document 10/07/24 08:20 LRN (Rec: 10/07/24 09:06 LRN [id number]) Therapeutic Exercises Supine Exercises Wedge/isolated Supine Exercise Name Wedge/Isolated Kegel - pt not to focus on breath direction to start Kegel Equipment Used Wedge. Reps/Minutes 9' Comments Much cuing to keep relaxed and abdomen from tightening Wedge/Kegel/resting breathing Supine Exercise Name Working on isolated Kegel w/o abdomen/chest tightening, labored breathing Equipment Used Wedge. TB around legs Reps/Minutes 8' Comments Much cuing to keep abdomen from tightening and breathing labored Prone Exercises [place] Prone Exercise Name Abdominal stretch w/deep breathing. Reps/Minutes 3' Therapeutic Activity Therapeutic Activity Downtraining Symp syst Reps/Minutes 10' Comments Reviewed education on downtraining system with deep breathing. Bladder retraining Name Bladder retraining Reps/Minutes 15' Comments Bladder retraining education with extensive discussion of pt's routine and areas to change to see what she many be ingesting that is a bladder irritant. Pt to stop Vit C Juice and replace with mix to start Manual Therapy Treatment Soft Tissue Mobilization ABdomen Body Location Mid and lower abdomen Mobilization Type Myofascial Release Body Position Supine Self-Care/Home Management Treatment Education Other Education Bladder diary review with extensive discussion of frequent voiding (every hour) in first part of day that she now identifies as her morning drink of 3/4 a quart of lemon mixed drink being a bladder irritant. 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 Discussed how she is able to have 2 hrs between voids in PM most of the time. Her urination times are 6-8 secs. Discussed pt's self perception that when she is stressed she urinates more. Further education of pt use of deep breathing to downtrain her nervous system to more of a rest/relax state. Encouraged pt to spend the time to retrain her bladder to every 2 hrs in the mornings and modify her drink by eliminating 1 ingredient at a time to determine the bladder irritant, then to seek an alternative to that ingredient . PT-OP-T Assessment and Plan Start: 09/06/24 18:12 Freq: Status: Active Protocol: Document 10/07/24 08:20 LRN (Rec: 10/07/24 09:06 LRN [id number]) Physical Therapy Assessment Goals Three Impairment Urinary leakage resulting in wetting of pants (~4x/week) Short Term Goal (STG) Pt will be educated in urge deference technique and be able to reduce wetting of pants to 2-3x/week. 09/23/24: Pt educated in urge deference technique. STG Duration 10/28/24 progressed 09/23/24 Halfway Goal (LTG) Improve bladder control with pt not wetting pants more than 1-2x/wk. LTG Duration 12/09/24 Two Impairment Urge urinary incontinece ( leaks ~4x/week w/urge) Halfway Goal (LTG) Improve PF strength with pt level of continence at her prior level: 95% continence level with urgency 1-2x/wk. LTG Duration 12/09/24 One Impairment Pt lacks an independent self care HEP. Short Term Goal (STG) Pt will be educated and able to demonstrate transfers to lessen core abdominal pressure . STG Duration 10/28/24 Administrative Representative Goal (LTG) Pt will be independent in a self care HEP for PF/hip (L ext/IR, R slightly ER) strengthening, hip(L IR/ER)/ trunk (L rot) mobility ex's. 09/16/24: HEP: Kegel Quick, Long hold strengthening. 09/30/24: Trning on deep breathing. LTG Duration 12/09/24 progressed 09/30/24 Assessment Summary Assessment Pt drink in mornings has a bladder irritant causing her to void every hour for ~3 hrs; without bladder irritant she can extend voids to every 2 hr (most of the time). She is having urinary leakage when she gets busy and may be because of elevated nervous system. Pt to work on downtraining with deep breathing and to modify her morning drink to try and eliminate the bladder irritant so that she can retrain bladder for day and nighttime voids. She is still voiding frequently at night. Pt will need to choose different AM drink or live with hourly voids. Physical Therapy Plan Frequency and Duration Frequency of Treatment 1x/Week Duration of treatment (weeks) 12 Plan of Care Start Date 09/16/24 Plan of Care End Date 12/09/24 Next Visit Focus/Plan Next Note Type Treatment Note Next Visit Plan Next: Manual and self stretch to abdominals. Cont Kegel on wedge without use of substitute muscles. Education in core pressure mgmt of coordinated breathing with transfers and body mechanics, and review deep breathing mechanics. Ther Ex: PF/hip strengthening , L hip mobility (L IR/ER) and strength (L ext/IR, R slightly ER) and trunk L rot, Educate/discuss proper sit to stand, and moving in bed using breathwork and core/PF stabilization for proper abdominal pressure system, education in pain mgmt ( cryotherapy to L hip). STM of LB, abdomen (and urachus) & bladder mobility, L TFL/IT Band. Modalities: US for L hip bursitis. POC: Pt education, Manual therapy, Therapeutic Exercises , Therapeutic Activities, Neuromuscular Reeducation, HEP .
--- NOTE | 2024-10-14 15:27 | PT.OTN ---
Current Diagnoses Muscle weakness (generalized) (10/14/24) Trochanteric bursitis, left hip (10/14/24) Overactive bladder (10/14/24) Urge incontinence (10/14/24) Physical Therapy Treatment Note PT-OP-A Visit Information Start: 09/06/24 18:12 Freq: Status: Active Protocol: Document 10/14/24 08:15 LRN (Rec: 10/14/24 08:59 LRN [id number]) Out-Patient Physical Therapy Visit Information Visit Information Visit Type Treatment Note Visit Note Pt is from [place], [place] ([place] miles north of [place], [facility] and [place]). Visit Start Time 08:15 Visit Stop Time 08:58 Visit Number Evaluation Information Evaluation Date 09/16/24 Precautions Precautions Pt reported PMH: Back pain from bad discs (? L3-L4, L4- -L5) - 1.5 yrs ago. 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 Back pain is resolved 80%. PT-OP-B Current Condition Start: 09/06/24 18:12 Freq: Status: Active Protocol: Document 09/16/24 08:18 LRN (Rec: 09/16/24 09:06 LRN [id number]) Current Condition History of Current Condition Onset Date 11/2023 Current Complaints Urge incontinence. History of Current Condition Pt reports previously she had PF physical therapy at [facility] (6-8 sessions) and improve 95%, then she got a yeast infection and now feels like she is starting over again. Yeast infection -02/2024, but now has urge issues along with triggers ( carbonated beverages). Estimates drinking 8 glassess of water a day (no caffeine or alcohol). She is taking estrodial that has allowed her to have intercourse again. PT lives in [place], [place] where she is being seen for L hip Bursitis and tenderness and tenderness of the L knee. Prior Treatments and Tests She receive chiropractic treatments as needed. Treatment Goals Patient/Caregiver Goals Pt goals: -Return to prior level: 95% continence level with urgency 1-2x/wk. -Not wetting pants as much. Personal Factors Other Personal Factors That May Effect Takes 1 hr to get to [facility] from her home. 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 One day didn't do so well, with discussion determined urge could have been from cold in house or stress. Today, had urge driving to therapy, but didn't stop like usual to void and made it to therapy to void with urgency but not as urgent as previous times. making baby steps. PT-OP-I Pelvic Floor Start: 09/06/24 18:12 Freq: Status: Active Protocol: Document 09/23/24 08:20 LRN (Rec: 09/23/24 17:07 LRN [id number]) Pelvic Floor Assessment Prolapse Cystocele Grade 2 Urethrocele Grade 1 Perineal Descent Resting Absent Bearing Present Contraction Ability Voluntary Contraction Weak Manual Muscle Testing Left 2 Manual Muscle Testing Right 1 Manual Muscle Testing Anterior 2 Manual Muscle Testing Posterior 2 Muscle Endurance (Seconds) 4 Number of Quick Contractions In 10 4 Seconds Comments Pelvic Floor Comments No tenderness of PF clock PT-OP-J Posture/Palpation/Skin Start: 09/06/24 18:12 Freq: Status: Active Protocol: Document 09/16/24 08:18 LRN (Rec: 09/16/24 09:06 LRN [id number]) Posture Evaluation Position Standing T-Spine Posture Increased Kyphosis L-Spine Posture Increased Lordosis Shoulder Posture (L) Elevated Pelvis Posture Anteriorly Tilted,(L) Iliac Crest Superior Weight Distribution Weight Shifted Right PT-OP-K Range of Motion Start: 09/06/24 18:12 Freq: Status: Active Protocol: Document 09/16/24 08:18 LRN (Rec: 09/16/24 09:06 LRN [id number]) Lumbar Spine Range of Motion Lumbar Spine Active Degrees Testing Position Standing Flexion 105 Extension 15 Rotation Left 10 Rotation Right 15 Lateral Flexion Left 10 Lateral Flexion Right 10 Comments Stiffness restricts mobility. Hip Goniometric Range of Motion Hip Right Passive Testing Position Supine Abduction 30 Internal Rotation 40 External Rotation 70 Left Passive Testing Position Supine Abduction 30 Internal Rotation 25 External Rotation 65 PT-OP-M Strength Start: 09/06/24 18:12 Freq: Status: Active Protocol: Document 09/16/24 08:18 LRN (Rec: 09/16/24 09:06 LRN [id number]) Hip Strength Hip Manual Muscle Testing Right External Rotation 4- Good- Comments Strength is generally 5/5 except as indicated above. Left Extension (S1) 3+ Fair+ Internal Rotation 2- Poor- Comments Strength is generally 5/5 except as indicated above. L hip pain with sidelie. PT-OP-Q Treatments Start: 09/06/24 18:12 Freq: Status: Active Protocol: Document 10/14/24 08:15 LRN (Rec: 10/14/24 08:59 LRN [id number]) Therapeutic Exercises Supine Exercises Happy Baby Pose Reps/Minutes 3' Comments Cued in position to hold at ankles/feet and breaths during hold Wedge/isolated Supine Exercise Name Wedge/Isolated Kegel - pt not to focus on breath direction to start Kegel Equipment Used Wedge. Reps/Minutes 9' Comments Much cuing to keep relaxed and abdomen from tightening Wedge/Kegel/resting breathing Supine Exercise Name Working on isolated Kegel w/o abdomen/chest tightening, labored breathing Equipment Used Wedge. TB around legs Reps/Minutes 2' Comments Much cuing to keep abdomen from tightening and breathing labored Therapeutic Activity Therapeutic Activity Downtraining Symp syst Reps/Minutes 8' Comments Reviewed downtraining at home for deep breathing with stress and distraction with sounds, and discussion of cold temp. Manual Therapy Treatment Soft Tissue Mobilization Bowel massage Body Location Abdomen Mobilization Type Other Intensity/Depth Moderate Body Position Supine Comments Also Training of pt doing self massage. Self-Care/Home Management Treatment Education Other Education Bladder diary review during Kegel ex's. Alexander massage education. Activities Self-Care/Home Management Activities Issued & reviewed handout for bowel massage. PT-OP-T Assessment and Plan Start: 09/06/24 18:12 Freq: Status: Active Protocol: Document 10/14/24 08:15 LRN (Rec: 10/14/24 08:59 LRN [id number]) Physical Therapy Assessment Goals Three Impairment Urinary leakage resulting in wetting of pants (~4x/week) Short Term Goal (STG) Pt will be educated in urge deference technique and be able to reduce wetting of pants to 2-3x/week. 09/23/24: Pt educated in urge deference technique. STG Duration 10/28/24 progressed 09/23/24 Correction Goal (LTG) Improve bladder control with pt not wetting pants more than 1-2x/wk. LTG Duration 12/09/24 Two Impairment Urge urinary incontinece ( leaks ~4x/week w/urge) Patient Relations Representative Goal (LTG) Improve PF strength with pt level of continence at her prior level: 95% continence level with urgency 1-2x/wk. LTG Duration 12/09/24 One Impairment Pt lacks an independent self care HEP. Short Term Goal (STG) Pt will be educated and able to demonstrate transfers to lessen core abdominal pressure . STG Duration 10/28/24 Correction Goal (LTG) Pt will be independent in a self care HEP for PF/hip (L ext/IR, R slightly ER) strengthening, hip(L IR/ER)/ trunk (L rot) mobility ex's. 09/16/24: HEP: Kegel Quick, Long hold strengthening. 09/30/24: Trning on deep breathing. 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 Today, bladder diary shows 2 days after last session voiding every 2 hrs, then revereted to every 1-1.5 hrs while at home for 3 days. Pt did well with BM massage, difficult doing Happy Baby pose due to cramping in anterior R thigh until folded towel placed in LB to maintain extension. Pt needed cuing for coordinating breath w/ transfers. Triggers of cold, stress, BMs make voiding more frequent and pt forgets to use deep breathing for relaxation . Physical Therapy Plan Frequency and Duration Frequency of Treatment 1x/Week Duration of treatment (weeks) 12 Plan of Care Start Date 09/16/24 Plan of Care End Date 12/09/24 Next Visit Focus/Plan Next Note Type Treatment Note Next Visit Plan Next: Manual and self stretch to anal sphincter and abdominals (and urachus) & bladder mobility, LB, L TFL/IT Band. Assess if she can do Kegel on wedge without use of substitute muscles. Education in core pressure mgmt of coordinated breathing with transfers and body mechanics, moving in bed. Review deep breathing mechanics. Start hip stretches and issue Happy Baby Pose. Ther Ex: PF/hip strengthening , L hip mobility (L IR/ER) and strength (L ext/IR, R slightly ER) and trunk L rot. Educate/discuss proper sit to stand, education in pain mgmt (cryotherapy to L hip). Modalities: US for L hip bursitis.
--- NOTE | 2024-10-28 16:02 | PT.OTN ---
Current Diagnoses Muscle weakness (generalized) (10/28/24) Trochanteric bursitis, left hip (10/28/24) Overactive bladder (10/28/24) Urge incontinence (10/28/24) Physical Therapy Treatment Note PT-OP-A Visit Information Start: 09/06/24 18:12 Freq: Status: Active Protocol: Document 10/28/24 14:38 LRN (Rec: 10/28/24 15:59 LRN [id number]) Out-Patient Physical Therapy Visit Information Visit Information Visit Type Treatment Note Visit Note Pt is from [place], [place] ([place] north of [place], [facility] and [place]). Visit Start Time 14:38 Visit Stop Time 15:29 Visit Number Evaluation Information Evaluation Date 09/16/24 Precautions Precautions Pt reported PMH: Back pain from bad discs (? L3-L4, L4- -L5) - 1.5 yrs ago. 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 Back pain is resolved 80%. PT-OP-B Current Condition Start: 09/06/24 18:12 Freq: Status: Active Protocol: Document 09/16/24 08:18 LRN (Rec: 09/16/24 09:06 LRN [id number]) Current Condition History of Current Condition Onset Date 11/2023 Current Complaints Urge incontinence. History of Current Condition Pt reports previously she had PF physical therapy at [facility] (6-8 sessions) and improve 95%, then she got a yeast infection and now feels like she is starting over again. Yeast infection -02/2024, but now has urge issues along with triggers ( carbonated beverages). Estimates drinking 8 glassess of water a day (no caffeine or alcohol). She is taking estrodial that has allowed her to have intercourse again. PT lives in [place], [place] where she is being seen for L hip Bursitis and tenderness and tenderness of the L knee. Prior Treatments and Tests She receive chiropractic treatments as needed. Treatment Goals Patient/Caregiver Goals Pt goals: -Return to prior level: 95% continence level with urgency 1-2x/wk. -Not wetting pants as much. 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 PT-OP-I Pelvic Floor Start: 09/06/24 18:12 Freq: Status: Active Protocol: Document 10/28/24 14:38 LRN (Rec: 10/28/24 15:59 LRN [id number]) Pelvic Floor Assessment Comments Pelvic Floor Comments Supine with legs on bolster. Hands together across breasts level. PT-OP-J Posture/Palpation/Skin Start: 09/06/24 18:12 Freq: Status: Active Protocol: Document 09/16/24 08:18 LRN (Rec: 09/16/24 09:06 LRN [id number]) Posture Evaluation Position Standing T-Spine Posture Increased Kyphosis L-Spine Posture Increased Lordosis Shoulder Posture (L) Elevated Pelvis Posture Anteriorly Tilted,(L) Iliac Crest Superior Weight Distribution Weight Shifted Right PT-OP-K Range of Motion Start: 09/06/24 18:12 Freq: Status: Active Protocol: Document 09/16/24 08:18 LRN (Rec: 09/16/24 09:06 LRN [id number]) Lumbar Spine Range of Motion Lumbar Spine Active Degrees Testing Position Standing Flexion 105 Extension 15 Rotation Left 10 Rotation Right 15 Lateral Flexion Left 10 Lateral Flexion Right 10 Comments Stiffness restricts mobility. Hip Goniometric Range of Motion Hip Right Passive Testing Position Supine Abduction 30 Internal Rotation 40 External Rotation 70 Left Passive Testing Position Supine Abduction 30 Internal Rotation 25 External Rotation 65 PT-OP-M Strength Start: 09/06/24 18:12 Freq: Status: Active Protocol: Document 09/16/24 08:18 LRN (Rec: 09/16/24 09:06 LRN [id number]) Hip Strength Hip Manual Muscle Testing Right External Rotation 4- Good- Comments Strength is generally 5/5 except as indicated above. Left Extension (S1) 3+ Fair+ Internal Rotation 2- Poor- Comments Strength is generally 5/5 except as indicated above. L hip pain with sidelie. PT-OP-Q Treatments Start: 09/06/24 18:12 Freq: Status: Active Protocol: Document 10/28/24 14:38 LRN (Rec: 10/28/24 15:59 LRN [id number]) Neuro Re-Education Treatment Other Activities sEMG Biofeedback Details With sEMG vaginal and R abdominal electrode for isolation of PF ms from abd Reps/Duration 51' Comments Supine with legs on bolster. Hands together across breasts level. Extra time needed for donning/ doffing vEMG electrode. PT-OP-T Assessment and Plan Start: 09/06/24 18:12 Freq: Status: Active Protocol: Document 10/28/24 14:38 LRN (Rec: 10/28/24 15:59 LRN [id number]) Physical Therapy Assessment Goals Three Impairment Urinary leakage resulting in wetting of pants (~4x/week) Short Term Goal (STG) Pt will be educated in urge deference technique and be able to reduce wetting of pants to 2-3x/week. 09/23/24: Pt educated in urge deference technique. STG Duration 10/28/24 progressed 09/23/24 Limb Driver Goal (LTG) Improve bladder control with pt not wetting pants more than 1-2x/wk. LTG Duration 12/09/24 Two Impairment Urge urinary incontinece ( leaks ~4x/week w/urge) Limb Driver Goal (LTG) Improve PF strength with pt level of continence at her prior level: 95% continence level with urgency 1-2x/wk. LTG Duration 12/09/24 One Impairment Pt lacks an independent self care HEP. Short Term Goal (STG) Pt will be educated and able to demonstrate transfers to lessen core abdominal pressure . STG Duration 10/28/24 Limb Driver Goal (LTG) Pt will be independent in a self care HEP for PF/hip (L ext/IR, R slightly ER) strengthening, hip(L IR/ER)/ trunk (L rot) mobility ex's. 09/16/24: HEP: Kegel Quick, Long hold strengthening. 09/30/24: Trning on deep breathing. LTG Duration 12/09/24 progressed 09/30/24 Assessment Summary Assessment Per sEMG biofeedback, pt is not able to perform an isolated Kegel. Abdominal muscles engage after 3 reps of quick and with long hold. She has poor awareness of how to relax abdomen during PF contractions; therefore pt is having a had time with voiding when abdominals are engaged. Physical Therapy Plan Frequency and Duration Frequency of Treatment 1x/Week Duration of treatment (weeks) 12 Plan of Care Start Date 09/16/24 Plan of Care End Date 12/09/24 Next Visit Focus/Plan Next Note Type Treatment Note Next Visit Plan Next: Check for pt ability to isolate PF contraction from abdominals (for better voiding urine & fecal) per sEMG. Manual therapy and self stretch to anal sphincter and abdominals (around urachus & bladder), LB, L TFL/IT Band. Start L hip stretches (L IR/ER ) and issue Happy Baby Pose. Education in core pressure mgmt of coordinated breathing with transfers and body mechanics, moving in bed. Review deep breathing mechanics. Assess if she can do Kegel on wedge without use of substitute muscles. Ther Ex: PF/hip strengthening , L hip strength (L ext/IR, R slightly ER) and trunk L rot. Educate/discuss proper sit to stand, education in pain mgmt (cryotherapy to L hip). Modalities if needed: US for L hip bursitis.
--- NOTE | 2024-11-04 17:15 | PT.OTN ---
Current Diagnoses Muscle weakness (generalized) (11/04/24) Trochanteric bursitis, left hip (11/04/24) Overactive bladder (11/04/24) Urge incontinence (11/04/24) Physical Therapy Treatment Note PT-OP-A Visit Information Start: 09/06/24 18:12 Freq: Status: Active Protocol: Document 11/04/24 13:52 LRN (Rec: 11/04/24 14:36 LRN [id number]) Out-Patient Physical Therapy Visit Information Visit Information Visit Type Treatment Note Visit Note Pt is from [place], [place] ([place] of [place], [facility] and [place]). Visit Start Time 13:52 Visit Stop Time 14:35 Visit Number Evaluation Information Evaluation Date 09/16/24 Precautions Precautions Pt reported PMH: Back pain from bad discs (? L3-L4, L4- -L5) - 1.5 yrs ago. 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 Back pain is resolved 80%. PT-OP-B Current Condition Start: 09/06/24 18:12 Freq: Status: Active Protocol: Document 09/16/24 08:18 LRN (Rec: 09/16/24 09:06 LRN [id number]) Current Condition History of Current Condition Onset Date 11/2023 Current Complaints Urge incontinence. History of Current Condition Pt reports previously she had PF physical therapy at [facility] (6-8 sessions) and improve 95%, then she got a yeast infection and now feels like she is starting over again. Yeast infection -02/2024, but now has urge issues along with triggers ( carbonated beverages). Estimates drinking 8 glassess of water a day (no caffeine or alcohol). She is taking estrodial that has allowed her to have intercourse again. PT lives in [place], [place] where she is being seen for L hip Bursitis and tenderness and tenderness of the L knee. Prior Treatments and Tests She receive chiropractic treatments as needed. Treatment Goals Patient/Caregiver Goals Pt goals: -Return to prior level: 95% continence level with urgency 1-2x/wk. -Not wetting pants as much. 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 PT-OP-I Pelvic Floor Start: 09/06/24 18:12 Freq: Status: Active Protocol: Document 10/28/24 14:38 LRN (Rec: 10/28/24 15:59 LRN [id number]) Pelvic Floor Assessment Comments Pelvic Floor Comments Supine with legs on bolster. Hands together across breasts level. PT-OP-J Posture/Palpation/Skin Start: 09/06/24 18:12 Freq: Status: Active Protocol: Document 09/16/24 08:18 LRN (Rec: 09/16/24 09:06 LRN [id number]) Posture Evaluation Position Standing T-Spine Posture Increased Kyphosis L-Spine Posture Increased Lordosis Shoulder Posture (L) Elevated Pelvis Posture Anteriorly Tilted,(L) Iliac Crest Superior Weight Distribution Weight Shifted Right PT-OP-K Range of Motion Start: 09/06/24 18:12 Freq: Status: Active Protocol: Document 09/16/24 08:18 LRN (Rec: 09/16/24 09:06 LRN [id number]) Lumbar Spine Range of Motion Lumbar Spine Active Degrees Testing Position Standing Flexion 105 Extension 15 Rotation Left 10 Rotation Right 15 Lateral Flexion Left 10 Lateral Flexion Right 10 Comments Stiffness restricts mobility. Hip Goniometric Range of Motion Hip Right Passive Testing Position Supine Abduction 30 Internal Rotation 40 External Rotation 70 Left Passive Testing Position Supine Abduction 30 Internal Rotation 25 External Rotation 65 PT-OP-M Strength Start: 09/06/24 18:12 Freq: Status: Active Protocol: Document 09/16/24 08:18 LRN (Rec: 09/16/24 09:06 LRN [id number]) Hip Strength Hip Manual Muscle Testing Right External Rotation 4- Good- Comments Strength is generally 5/5 except as indicated above. Left Extension (S1) 3+ Fair+ Internal Rotation 2- Poor- Comments Strength is generally 5/5 except as indicated above. L hip pain with sidelie. PT-OP-Q Treatments Start: 09/06/24 18:12 Freq: Status: Active Protocol: Document 11/04/24 13:52 LRN (Rec: 11/04/24 14:36 LRN [id number]) Therapeutic Exercises Prone Exercises KYLE Prone Exercise Name KYLE stretch Reps/Minutes 1-3 breath hold x 9' Comments Much cuing needed for time of holding and for relaxation btn ex's. Manual Therapy Treatment Soft Tissue Mobilization ABdomen Body Location Mid & lower (region of bladder , uterus, urachus) Abdomen Mobilization Type Sustained Pressure Intensity/Depth superifial to moderate Body Position Supine Comments Pt very guarded and tight Neuro Re-Education Treatment Other Activities sEMG Biofeedback Details With sEMG vaginal and R abdominal electrode for isolation of PF ms from abd Reps/Duration 11' Comments Supine. Hands together across chest level. Extra time needed for donning/ doffing vEMG electrode. PT-OP-T Assessment and Plan Start: 09/06/24 18:12 Freq: Status: Active Protocol: Document 11/04/24 13:52 LRN (Rec: 11/04/24 14:36 LRN [id number]) Physical Therapy Assessment Goals Three Impairment Urinary leakage resulting in wetting of pants (~4x/week) Short Term Goal (STG) Pt will be educated in urge deference technique and be able to reduce wetting of pants to 2-3x/week. 09/23/24: Pt educated in urge deference technique. STG Duration 10/28/24 progressed 09/23/24 [facility] Goal (LTG) Improve bladder control with pt not wetting pants more than 1-2x/wk. LTG Duration 12/09/24 Two Impairment Urge urinary incontinece ( leaks ~4x/week w/urge) [facility] Goal (LTG) Improve PF strength with pt level of continence at her prior level: 95% continence level with urgency 1-2x/wk. LTG Duration 12/09/24 One Impairment Pt lacks an independent self care HEP. Short Term Goal (STG) Pt will be educated and able to demonstrate transfers to lessen core abdominal pressure . STG Duration 10/28/24 [facility] Goal (LTG) Pt will be independent in a self care HEP for PF/hip (L ext/IR, R slightly ER) strengthening, hip(L IR/ER)/ trunk (L rot) mobility ex's. 09/16/24: HEP: Kegel Quick, Long hold strengthening. 09/30/24: Trning on deep breathing. 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 Today the pt was able to relax her abdominal ms with deep breathing but was not able to isolate her PF from her abdominal muscle due to high abdominal ms tone. Physical Therapy Plan Frequency and Duration Frequency of Treatment 1x/Week Duration of treatment (weeks) 12 Plan of Care Start Date 09/16/24 Plan of Care End Date 12/09/24 Next Visit Focus/Plan Next Note Type Treatment Note Next Visit Plan Next: Address education. Start L hip stretches (L IR/ER ) and issue Happy Baby Pose. Try: Manual therapy and self stretch to anal sphincter and abdominals (around urachus & bladder), LB, L TFL/IT Band. Assess abdominal tone before and after STM & Check for pt ability to isolate PF contraction from abdominals ( for better voiding urine & fecal). Education in core pressure mgmt of coordinated breathing with transfers and body mechanics, moving in bed. Review deep breathing mechanics. Assess if she can do Kegel on wedge without use of substitute muscles. Ther Ex: PF/hip strengthening , L hip strength (L ext/IR, R slightly ER) and trunk L rot. Educate/discuss proper sit to stand, education in pain mgmt (cryotherapy to L hip). Modalities if needed: US for L hip bursitis.
--- NOTE | 2024-11-07 12:48 | PT.OTN ---
Current Diagnoses Muscle weakness (generalized) (11/07/24) Trochanteric bursitis, left hip (11/07/24) Overactive bladder (11/07/24) Urge incontinence (11/07/24) Physical Therapy Treatment Note PT-OP-A Visit Information Start: 09/06/24 18:12 Freq: Status: Active Protocol: Document 11/07/24 11:34 LRN (Rec: 11/07/24 12:36 LRN [id number]) Out-Patient Physical Therapy Visit Information Visit Information Visit Type Treatment Note Visit Note Pt is from [place], [place] ([place] miles north of [place], [facility] and [place]). Visit Start Time 11:33 Visit Stop Time 12:18 Visit Number Evaluation Information Evaluation Date 09/16/24 Precautions Precautions Pt reported PMH: Back pain from bad discs (? L3-L4, L4- -L5) - 1.5 yrs ago. 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 Back pain is resolved 80%. PT-OP-B Current Condition Start: 09/06/24 18:12 Freq: Status: Active Protocol: Document 09/16/24 08:18 LRN (Rec: 09/16/24 09:06 LRN [id number]) Current Condition History of Current Condition Onset Date 11/2023 Current Complaints Urge incontinence. History of Current Condition Pt reports previously she had PF physical therapy at [facility] (6-8 sessions) and improve 95%, then she got a yeast infection and now feels like she is starting over again. Yeast infection -02/2024, but now has urge issues along with triggers ( carbonated beverages). Estimates drinking 8 glassess of water a day (no caffeine or alcohol). She is taking estrodial that has allowed her to have intercourse again. PT lives in [place], [place] where she is being seen for L hip Bursitis and tenderness and tenderness of the L knee. Prior Treatments and Tests She receive chiropractic treatments as needed. Treatment Goals Patient/Caregiver Goals Pt goals: -Return to prior level: 95% continence level with urgency 1-2x/wk. -Not wetting pants as much. Personal Factors Other Personal Factors That May Effect Takes 1 hr to get to [place] [facility]/Recovery from her home. 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 PT-OP-I Pelvic Floor Start: 09/06/24 18:12 Freq: Status: Active Protocol: Document 10/28/24 14:38 LRN (Rec: 10/28/24 15:59 LRN [id number]) Pelvic Floor Assessment Comments Pelvic Floor Comments Supine with legs on bolster. Hands together across breasts level. PT-OP-J Posture/Palpation/Skin Start: 09/06/24 18:12 Freq: Status: Active Protocol: Document 09/16/24 08:18 LRN (Rec: 09/16/24 09:06 LRN [id number]) Posture Evaluation Position Standing T-Spine Posture Increased Kyphosis L-Spine Posture Increased Lordosis Shoulder Posture (L) Elevated Pelvis Posture Anteriorly Tilted,(L) Iliac Crest Superior Weight Distribution Weight Shifted Right PT-OP-K Range of Motion Start: 09/06/24 18:12 Freq: Status: Active Protocol: Document 09/16/24 08:18 LRN (Rec: 09/16/24 09:06 LRN [id number]) Lumbar Spine Range of Motion Lumbar Spine Active Degrees Testing Position Standing Flexion 105 Extension 15 Rotation Left 10 Rotation Right 15 Lateral Flexion Left 10 Lateral Flexion Right 10 Comments Stiffness restricts mobility. Hip Goniometric Range of Motion Hip Right Passive Testing Position Supine Abduction 30 Internal Rotation 40 External Rotation 70 Left Passive Testing Position Supine Abduction 30 Internal Rotation 25 External Rotation 65 PT-OP-M Strength Start: 09/06/24 18:12 Freq: Status: Active Protocol: Document 09/16/24 08:18 LRN (Rec: 09/16/24 09:06 LRN [id number]) Hip Strength Hip Manual Muscle Testing Right External Rotation 4- Good- Comments Strength is generally 5/5 except as indicated above. Left Extension (S1) 3+ Fair+ Internal Rotation 2- Poor- Comments Strength is generally 5/5 except as indicated above. L hip pain with sidelie. PT-OP-Q Treatments Start: 09/06/24 18:12 Freq: Status: Active Protocol: Document 11/07/24 11:34 LRN (Rec: 11/07/24 12:36 LRN [id number]) Therapeutic Exercises Other Exercises Child's pose Other Exercise Name Child's Pose - DC'd after not being able to perform stretch comfortable for Reps/Minutes 9' Comments Extra time, attempts to modify for pt comfort due to freya knee pain Manual Therapy Treatment Soft Tissue Mobilization PF Body Location posterior PF Mobilization Type Strumming Intensity/Depth Moderate Body Position Prone Comments Most focus on R posterior PF arond anus towards vaginal canal. ABdomen Body Location Mid & lower (region of bladder , uterus, urachus) Abdomen Mobilization Type Sustained Pressure Intensity/Depth superifial to moderate Body Position Supine Comments Pt very guarded and tight Neuro Re-Education Treatment Other Activities Coordination of Kegel from abdoms Details Tryin to isolate PF contraction from abdominals. Reps/Duration 9' Comments At end was able to identify suble onset of ABdom w/PF contraction. Having trouble controlling onset of abdom tone. Incr's significantly with talking. PT-OP-T Assessment and Plan Start: 09/06/24 18:12 Freq: Status: Active Protocol: Document 11/07/24 11:34 LRN (Rec: 11/07/24 12:36 LRN [id number]) Physical Therapy Assessment Goals Three Impairment Urinary leakage resulting in wetting of pants (~4x/week) Short Term Goal (STG) Pt will be educated in urge deference technique and be able to reduce wetting of pants to 2-3x/week. 09/23/24: Pt educated in urge deference technique. STG Duration 10/28/24 progressed 09/23/24 Linux Programmer Goal (LTG) Improve bladder control with pt not wetting pants more than 1-2x/wk. LTG Duration 12/09/24 Two Impairment Urge urinary incontinece ( leaks ~4x/week w/urge) Linux Programmer Goal (LTG) Improve PF strength with pt level of continence at her prior level: 95% continence level with urgency 1-2x/wk. LTG Duration 12/09/24 One Impairment Pt lacks an independent self care HEP. Short Term Goal (STG) Pt will be educated and able to demonstrate transfers to lessen core abdominal pressure . STG Duration 10/28/24 Linux Programmer Goal (LTG) Pt will be independent in a self care HEP for PF/hip (L ext/IR, R slightly ER) strengthening, hip(L IR/ER)/ trunk (L rot) mobility ex's. 09/16/24: HEP: Kegel Quick, Long hold strengthening. 09/30/24: Trning on deep breathing. LTG Duration 12/09/24 progressed 09/30/24 Assessment Summary Assessment Pt Abdominal a little less tension noted, able to start going into pelvic bowel, started tighter R, then became tigher L. Posterior PF tight on R coccygeal ms. She was able to identify tightening of ABdoms and was able to identify for first time the tension in her abdoms with PF contraction. For a few reps she was able to isolate PF from abdoms. Physical Therapy Plan Frequency and Duration Frequency of Treatment 1x/Week Duration of treatment (weeks) 12 Plan of Care Start Date 09/16/24 Plan of Care End Date 12/09/24 Next Visit Focus/Plan Next Note Type Treatment Note Next Visit Plan Next: Address education ( Education in core pressure mgmt of coordinated breathing with transfers and body mechanics, moving in bed. Review deep breathing mechanics. Educate/discuss proper sit to stand, education in pain mgmt (cryotherapy to L hip)). Start L hip stretches (L IR/ER ) and issue Happy Baby Pose. Cont: Manual therapy and self stretch to anal sphincter and abdominals (around urachus & bladder), add: LB, L TFL/IT Band. Assess abdominal tone ( if time permits) before and after STM & work towards pt ability to isolate PF contraction from abdominals ( for better voiding urine & fecal). Assess if she can do Kegel on wedge without use of substitute muscles. Ther Ex: PF/hip strengthening, L hip strength (L ext/IR, R slightly ER) and trunk L rot. Modalities if needed: US for L hip bursitis.
--- NOTE | 2024-11-14 16:55 | PT.OTN ---
Current Diagnoses Muscle weakness (generalized) (11/14/24) Trochanteric bursitis, left hip (11/14/24) Overactive bladder (11/14/24) Urge incontinence (11/14/24) Physical Therapy Treatment Note PT-OP-A Visit Information Start: 09/06/24 18:12 Freq: Status: Active Protocol: Document 11/14/24 08:20 LRN (Rec: 11/14/24 09:06 LRN [id number]) Out-Patient Physical Therapy Visit Information Visit Information Visit Type Treatment Note Visit Note Pt is from [place], [place] ([place], [facility] and [place]). Visit Start Time 08:20 Visit Stop Time 09:02 Visit Number Evaluation Information Evaluation Date 09/16/24 Precautions Precautions Pt reported PMH: Back pain from bad discs (? L3-L4, L4- -L5) - 1.5 yrs ago. 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 Back pain is resolved 80%. PT-OP-B Current Condition Start: 09/06/24 18:12 Freq: Status: Active Protocol: Document 09/16/24 08:18 LRN (Rec: 09/16/24 09:06 LRN [id number]) Current Condition History of Current Condition Onset Date 11/2023 Current Complaints Urge incontinence. History of Current Condition Pt reports previously she had PF physical therapy at [facility] (6-8 sessions) and improve 95%, then she got a yeast infection and now feels like she is starting over again. Yeast infection -02/2024, but now has urge issues along with triggers ( carbonated beverages). Estimates drinking 8 glassess of water a day (no caffeine or alcohol). She is taking estrodial that has allowed her to have intercourse again. PT lives in [place], [place] where she is being seen for L hip Bursitis and tenderness and tenderness of the L knee. Prior Treatments and Tests She receive chiropractic treatments as needed. Treatment Goals Patient/Caregiver Goals Pt goals: -Return to prior level: 95% continence level with urgency 1-2x/wk. -Not wetting pants as much. Personal Factors Other Personal Factors That May Effect Takes 1 hr to get to [place] [facility]/Recovery from her home. 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 PT-OP-I Pelvic Floor Start: 09/06/24 18:12 Freq: Status: Active Protocol: Document 10/28/24 14:38 LRN (Rec: 10/28/24 15:59 LRN [id number]) Pelvic Floor Assessment Comments Pelvic Floor Comments Supine with legs on bolster. Hands together across breasts level. PT-OP-J Posture/Palpation/Skin Start: 09/06/24 18:12 Freq: Status: Active Protocol: Document 09/16/24 08:18 LRN (Rec: 09/16/24 09:06 LRN [id number]) Posture Evaluation Position Standing T-Spine Posture Increased Kyphosis L-Spine Posture Increased Lordosis Shoulder Posture (L) Elevated Pelvis Posture Anteriorly Tilted,(L) Iliac Crest Superior Weight Distribution Weight Shifted Right PT-OP-K Range of Motion Start: 09/06/24 18:12 Freq: Status: Active Protocol: Document 09/16/24 08:18 LRN (Rec: 09/16/24 09:06 LRN [id number]) Lumbar Spine Range of Motion Lumbar Spine Active Degrees Testing Position Standing Flexion 105 Extension 15 Rotation Left 10 Rotation Right 15 Lateral Flexion Left 10 Lateral Flexion Right 10 Comments Stiffness restricts mobility. Hip Goniometric Range of Motion Hip Right Passive Testing Position Supine Abduction 30 Internal Rotation 40 External Rotation 70 Left Passive Testing Position Supine Abduction 30 Internal Rotation 25 External Rotation 65 PT-OP-M Strength Start: 09/06/24 18:12 Freq: Status: Active Protocol: Document 09/16/24 08:18 LRN (Rec: 09/16/24 09:06 LRN [id number]) Hip Strength Hip Manual Muscle Testing Right External Rotation 4- Good- Comments Strength is generally 5/5 except as indicated above. Left Extension (S1) 3+ Fair+ Internal Rotation 2- Poor- Comments Strength is generally 5/5 except as indicated above. L hip pain with sidelie. PT-OP-Q Treatments Start: 09/06/24 18:12 Freq: Status: Active Protocol: Document 11/14/24 08:20 LRN (Rec: 11/14/24 09:06 LRN [id number]) Neuro Re-Education Treatment Other Activities sEMG Biofeedback Details With sEMG vaginal and R abdominal electrode for isolation of PF ms from abd Reps/Duration 31' Comments Supine. Quick and long hold contractions Hands together across chest level. Extra time needed for donning/ doffing vEMG electrode. Self-Care/Home Management Treatment Education Other Education Discussed & educated pt in Proper body mechanics for ADLs and Body Mechanics Basics. Discussed educated pt in Transfers with breath/Kegels. PT-OP-T Assessment and Plan Start: 09/06/24 18:12 Freq: Status: Active Protocol: Document 11/14/24 08:20 LRN (Rec: 11/14/24 09:06 LRN [id number]) Physical Therapy Assessment Goals Three Impairment Urinary leakage resulting in wetting of pants (~4x/week) Short Term Goal (STG) Pt will be educated in urge deference technique and be able to reduce wetting of pants to 2-3x/week. 09/23/24: Pt educated in urge deference technique. STG Duration 10/28/24 progressed 09/23/24 Jail Goal (LTG) Improve bladder control with pt not wetting pants more than 1-2x/wk. LTG Duration 12/09/24 Two Impairment Urge urinary incontinece ( leaks ~4x/week w/urge) Jail Goal (LTG) Improve PF strength with pt level of continence at her prior level: 95% continence level with urgency 1-2x/wk. LTG Duration 12/09/24 One Impairment Pt lacks an independent self care HEP. Short Term Goal (STG) Pt will be educated and able to demonstrate transfers to lessen core abdominal pressure . 11/14/24: Pt educated in Transfers with breath/Kegels for core pressure management and in Proper body mechanics for ADLs and Body Mechanics Basics. STG Duration 10/28/24 progressed 11/14/24 (needs to demonstrate core pressure mgmt) Jail Goal (LTG) Pt will be independent in a self care HEP for PF/hip (L ext/IR, R slightly ER) strengthening, hip(L IR/ER)/ trunk (L rot) mobility ex's. 09/16/24: HEP: Kegel Quick, Long hold strengthening. 09/30/24: Trning on deep breathing. 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 Today, after much training, pt is able to do quick contraction with a quick relaxation 50% of the time. Pt appears to be using breath to tighten and relax PF. Pt has a low level abdominal twitch every sec, than evens out a little with deep breathing. Pt has identified very tight abdominal ms. Physical Therapy Plan Frequency and Duration Frequency of Treatment 1x/Week Duration of treatment (weeks) 12 Plan of Care Start Date 09/16/24 Plan of Care End Date 12/09/24 Next Visit Focus/Plan Next Note Type Progress Note Next Visit Plan Next: con'd training on deep breathing mechanics, stretch abdominals and ?posterior PF. Educate/discuss proper sit to stand, education in pain mgmt (cryotherapy to L hip)). Start hip(L IR/ER)/trunk (L rot) mobility ex's, and hip (L ext/IR, R slightly ER) strengthening. Cont: Manual therapy and self stretch to anal sphincter and abdominals (around urachus & bladder), add: LB, L TFL/IT Band. Assess abdominal tone ( if time permits) before and after STM & work towards pt ability to isolate PF contraction from abdominals ( for better voiding urine & fecal). Assess if she can do Kegel on wedge without use of substitute muscles. Ther Ex: PF/hip strengthening, L hip strength (L ext/IR, R slightly ER) and trunk L rot. Modalities if needed: US for L hip bursitis.
--- NOTE | 2024-11-22 13:34 | PT.OTN ---
Current Diagnoses Muscle weakness (generalized) (11/22/24) Trochanteric bursitis, left hip (11/22/24) Overactive bladder (11/22/24) Urge incontinence (11/22/24) Physical Therapy Treatment Note PT-OP-A Visit Information Start: 09/06/24 18:12 Freq: Status: Active Protocol: Document 11/22/24 12:16 LRN (Rec: 11/22/24 13:34 LRN [id number]) Out-Patient Physical Therapy Visit Information Visit Information Visit Type Progress Note Visit Note Pt is from [place], [place] ([place] miles north of [place], [facility] and [place]). Visit Start Time 12:16 Visit Stop Time 13:00 Visit Number Evaluation Information Evaluation Date 09/16/24 Precautions Precautions Pt reported PMH: Back pain from bad discs (? L3-L4, L4- -L5) - 1.5 yrs ago. 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 Back pain is resolved 80%. PT-OP-B Current Condition Start: 09/06/24 18:12 Freq: Status: Active Protocol: Document 09/16/24 08:18 LRN (Rec: 09/16/24 09:06 LRN [id number]) Current Condition History of Current Condition Onset Date 11/2023 Current Complaints Urge incontinence. History of Current Condition Pt reports previously she had PF physical therapy at [facility] (6-8 sessions) and improve 95%, then she got a yeast infection and now feels like she is starting over again. Yeast infection -02/2024, but now has urge issues along with triggers ( carbonated beverages). Estimates drinking 8 glassess of water a day (no caffeine or alcohol). She is taking estrodial that has allowed her to have intercourse again. PT lives in [place], [place] where she is being seen for L hip Bursitis and tenderness and tenderness of the L knee. Prior Treatments and Tests She receive chiropractic treatments as needed. Treatment Goals Patient/Caregiver Goals Pt goals: -Return to prior level: 95% continence level with urgency 1-2x/wk. -Not wetting pants as much. 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 Had less leakage after last session. Leaks with pool exercise. Has learned a couple things to irritate the bladder. Vit C & herbal tea. PT-OP-I Pelvic Floor Start: 09/06/24 18:12 Freq: Status: Active Protocol: Document 11/22/24 12:16 LRN (Rec: 11/22/24 13:34 LRN [id number]) Pelvic Floor Assessment Comments Pelvic Floor Comments Quick strength ~5 mV's before and after manual therapy 10 mV 's. Endurance strength ~5 mV's before & after manual therapy. PT-OP-J Posture/Palpation/Skin Start: 09/06/24 18:12 Freq: Status: Active Protocol: Document 09/16/24 08:18 LRN (Rec: 09/16/24 09:06 LRN [id number]) Posture Evaluation Position Standing T-Spine Posture Increased Kyphosis L-Spine Posture Increased Lordosis Shoulder Posture (L) Elevated Pelvis Posture Anteriorly Tilted,(L) Iliac Crest Superior Weight Distribution Weight Shifted Right PT-OP-K Range of Motion Start: 09/06/24 18:12 Freq: Status: Active Protocol: Document 09/16/24 08:18 LRN (Rec: 09/16/24 09:06 LRN [id number]) Lumbar Spine Range of Motion Lumbar Spine Active Degrees Testing Position Standing Flexion 105 Extension 15 Rotation Left 10 Rotation Right 15 Lateral Flexion Left 10 Lateral Flexion Right 10 Comments Stiffness restricts mobility. Hip Goniometric Range of Motion Hip Right Passive Testing Position Supine Abduction 30 Internal Rotation 40 External Rotation 70 Left Passive Testing Position Supine Abduction 30 Internal Rotation 25 External Rotation 65 PT-OP-M Strength Start: 09/06/24 18:12 Freq: Status: Active Protocol: Document 09/16/24 08:18 LRN (Rec: 09/16/24 09:06 LRN [id number]) Hip Strength Hip Manual Muscle Testing Right External Rotation 4- Good- Comments Strength is generally 5/5 except as indicated above. Left Extension (S1) 3+ Fair+ Internal Rotation 2- Poor- Comments Strength is generally 5/5 except as indicated above. L hip pain with sidelie. PT-OP-Q Treatments Start: 09/06/24 18:12 Freq: Status: Active Protocol: Document 11/22/24 12:16 LRN (Rec: 11/22/24 13:34 LRN [id number]) Therapeutic Exercises Supine Exercises Deep Breathing Reps/Minutes 4' Prone Exercises KYLE Prone Exercise Name POH stretching of abdomen Reps/Minutes 5' Neuro Re-Education Treatment Other Activities Coordination of Kegel from abdoms Details With sEMG vaginal and R abdominal electrode for isolation of PF ms from abd Reps/Duration 12' and after manual 9' Comments Supine. Quick and long hold contractions Hands together across chest level. Extra time needed for donning/ doffing vEMG electrode. Quick strength ~5 mV's before and after manual therapy 10 mV 's. Endurance strength ~5 mV's before & after manual therapy. Pt able to maintain contraction strength better with exercise and cued to not breath hold. PT-OP-T Assessment and Plan Start: 09/06/24 18:12 Freq: Status: Active Protocol: Document 11/22/24 12:16 LRN (Rec: 11/22/24 13:34 LRN [id number]) Physical Therapy Assessment Rehab Potential Rehabilitation Potential Good Evaluation Complexity Number of Personal Factors/Comorbidities 3 or More Number of Body Systems Impaired 4 or More Clinical Presentation at Evaluation Evolving Impairments Impairments Activity Tolerance, Coordination,Pain,ROM,Soft Tissue Mobility,Strength Goals Three Impairment Urinary leakage resulting in wetting of pants (~4x/week) Short Term Goal (STG) Pt will be educated in urge deference technique and be able to reduce wetting of pants to 2-3x/week. 09/23/24: Pt educated in urge deference technique. STG Duration 10/28/24 progressed 09/23/24 Convention Services Director Goal (LTG) Improve bladder control with pt not wetting pants more than 1-2x/wk. LTG Duration 12/09/24 Two Impairment Urge urinary incontinece ( leaks ~4x/week w/urge) Convention Services Director Goal (LTG) Improve PF strength with pt level of continence at her prior level: 95% continence level with urgency 1-2x/wk. 11/22/24: Improved PF strength of contraction to ~5 mV's with quick and long hold contraction. After PF stretching PF strength improved to 10 mV's. LTG Duration 12/09/24 progressing 11/22/24 One Impairment Pt lacks an independent self care HEP. Short Term Goal (STG) Pt will be educated and able to demonstrate transfers to lessen core abdominal pressure . 11/14/24: Pt educated in Transfers with breath/Kegels for core pressure management and in Proper body mechanics for ADLs and Body Mechanics Basics. STG Duration 10/28/24 progressed 11/14/24 (needs to demonstrate core pressure mgmt) Retirement Goal (LTG) Pt will be independent in a self care HEP for PF/hip (L ext/IR, R slightly ER) strengthening, hip(L IR/ER)/ trunk (L rot) mobility ex's. 09/16/24: HEP: Kegel Quick, Long hold strengthening. 09/30/24: Trning on deep breathing. 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 Today, pt demonstrates improved mechanics of deep breathing and w/cuing can do a max 6 sec breath w/good abdom excusion. Her PF strength is ~5 mV's and endurance hold is at ~5 mVs. She is now in supine able to perform a PF contraction with minimal abdominal activation with 1 rep (greater than 1 rep not assessed due to time contraints). The pt is slowly improving in her PF strength and is showing improved core pressure mgmt. Less abdominal tension may be helping to reduce urinary leakage by decreasing pressure on internal organs during BMs. The pt will benefit from continuation of skilled physical therapy to assist pt to manage her core pressure and reduce urinary leakage with a strong urge and concomitant BM. Physical Therapy Plan Frequency and Duration Frequency of Treatment 1x/Week Duration of treatment (weeks) 12 Plan of Care Start Date 09/16/24 Plan of Care End Date 12/09/24 Therapeutic Interventions Therapeutic Interventions Coordination Training,Home Exercise Program,Manual Therapy,Neuromuscular Re- education,Self-Care/Home Management,Soft Tissue Mobilization,Therapeutic Activities,Therapeutic Exercises Next Visit Focus/Plan Next Note Type Treatment Note Next Visit Plan Next: Assess for proper core pressure mgmt w/transfers. Educate/discuss proper sit to stand, education in pain mgmt (cryotherapy to L hip)) - RICE for low back. Assess PF baseline/strength/endurance. Cont'd stretch abdominals & around urachus & bladder, and posterior PF (anal). Add: LB, L TFL/IT Band stretch. Start hip(L IR/ER)/ trunk (L rot) mobility ex's, and L hip strengthening (L ext /IR, R slightly ER) strengthening. Work towards pt ability to isolate PF contraction from abdominals (for better voiding urine & fecal). Assess if she can do Kegel on wedge without use of substitute muscles. Occasional check with proper mechanics for 6 sec deep breathing mechanics Modalities if needed: US for L hip bursitis.
--- NOTE | 2024-11-22 13:37 | PT.OTN ---
Current Diagnoses Muscle weakness (generalized) (11/22/24) Trochanteric bursitis, left hip (11/22/24) Overactive bladder (11/22/24) Urge incontinence (11/22/24) Physical Therapy Treatment Note PT-OP-A Visit Information Start: 09/06/24 18:12 Freq: Status: Active Protocol: Document 11/22/24 12:16 LRN (Rec: 11/22/24 13:34 LRN [id number]) Out-Patient Physical Therapy Visit Information Visit Information Visit Type Progress Note Visit Note Pt is from [place], [place] ([place] miles north of [place], [facility] and [place]). Visit Start Time 12:16 Visit Stop Time 13:00 Visit Number Evaluation Information Evaluation Date 09/16/24 Precautions Precautions Pt reported PMH: Back pain from bad discs (? L3-L4, L4- -L5) - 1.5 yrs ago. 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 Back pain is resolved 80%. PT-OP-B Current Condition Start: 09/06/24 18:12 Freq: Status: Active Protocol: Document 09/16/24 08:18 LRN (Rec: 09/16/24 09:06 LRN [id number]) Current Condition History of Current Condition Onset Date 11/2023 Current Complaints Urge incontinence. History of Current Condition Pt reports previously she had PF physical therapy at [facility] (6-8 sessions) and improve 95%, then she got a yeast infection and now feels like she is starting over again. Yeast infection -02/2024, but now has urge issues along with triggers ( carbonated beverages). Estimates drinking 8 glassess of water a day (no caffeine or alcohol). She is taking estrodial that has allowed her to have intercourse again. PT lives in [place], [place] where she is being seen for L hip Bursitis and tenderness and tenderness of the L knee. Prior Treatments and Tests She receive chiropractic treatments as needed. Treatment Goals Patient/Caregiver Goals Pt goals: -Return to prior level: 95% continence level with urgency 1-2x/wk. -Not wetting pants as much. Personal Factors Other Personal Factors That May Effect Takes 1 hr to get to [place] [facility]Recovery from her home. 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 Had less leakage after last session. Leaks with pool exercise. Has learned a couple things to irritate the bladder. Vit C & herbal tea. PT-OP-I Pelvic Floor Start: 09/06/24 18:12 Freq: Status: Active Protocol: Document 11/22/24 12:16 LRN (Rec: 11/22/24 13:34 LRN [id number]) Pelvic Floor Assessment Comments Pelvic Floor Comments Quick strength ~5 mV's before and after manual therapy 10 mV 's. Endurance strength ~5 mV's before & after manual therapy. PT-OP-J Posture/Palpation/Skin Start: 09/06/24 18:12 Freq: Status: Active Protocol: Document 09/16/24 08:18 LRN (Rec: 09/16/24 09:06 LRN [id number]) Posture Evaluation Position Standing T-Spine Posture Increased Kyphosis L-Spine Posture Increased Lordosis Shoulder Posture (L) Elevated Pelvis Posture Anteriorly Tilted,(L) Iliac Crest Superior Weight Distribution Weight Shifted Right PT-OP-K Range of Motion Start: 09/06/24 18:12 Freq: Status: Active Protocol: Document 09/16/24 08:18 LRN (Rec: 09/16/24 09:06 LRN [id number]) Lumbar Spine Range of Motion Lumbar Spine Active Degrees Testing Position Standing Flexion 105 Extension 15 Rotation Left 10 Rotation Right 15 Lateral Flexion Left 10 Lateral Flexion Right 10 Comments Stiffness restricts mobility. Hip Goniometric Range of Motion Hip Right Passive Testing Position Supine Abduction 30 Internal Rotation 40 External Rotation 70 Left Passive Testing Position Supine Abduction 30 Internal Rotation 25 External Rotation 65 PT-OP-M Strength Start: 09/06/24 18:12 Freq: Status: Active Protocol: Document 09/16/24 08:18 LRN (Rec: 09/16/24 09:06 LRN [id number]) Hip Strength Hip Manual Muscle Testing Right External Rotation 4- Good- Comments Strength is generally 5/5 except as indicated above. Left Extension (S1) 3+ Fair+ Internal Rotation 2- Poor- Comments Strength is generally 5/5 except as indicated above. L hip pain with sidelie. PT-OP-Q Treatments Start: 09/06/24 18:12 Freq: Status: Active Protocol: Document 11/22/24 12:16 LRN (Rec: 11/22/24 13:34 LRN [id number]) Therapeutic Exercises Supine Exercises Deep Breathing Reps/Minutes 4' Prone Exercises KYLE Prone Exercise Name POH stretching of abdomen Reps/Minutes 5' Neuro Re-Education Treatment Other Activities Coordination of Kegel from abdoms Details With sEMG vaginal and R abdominal electrode for isolation of PF ms from abd Reps/Duration 12' and after manual 9' Comments Supine. Quick and long hold contractions Hands together across chest level. Extra time needed for donning/ doffing vEMG electrode. Quick strength ~5 mV's before and after manual therapy 10 mV 's. Endurance strength ~5 mV's before & after manual therapy. Pt able to maintain contraction strength better with exercise and cued to not breath hold. PT-OP-T Assessment and Plan Start: 09/06/24 18:12 Freq: Status: Active Protocol: Document 11/22/24 12:16 LRN (Rec: 11/22/24 13:34 LRN [id number]) Physical Therapy Assessment Rehab Potential Rehabilitation Potential Good Evaluation Complexity Number of Personal Factors/Comorbidities 3 or More Number of Body Systems Impaired 4 or More Clinical Presentation at Evaluation Evolving Impairments Impairments Activity Tolerance, Coordination,Pain,ROM,Soft Tissue Mobility,Strength Goals Three Impairment Urinary leakage resulting in wetting of pants (~4x/week) Short Term Goal (STG) Pt will be educated in urge deference technique and be able to reduce wetting of pants to 2-3x/week. 09/23/24: Pt educated in urge deference technique. STG Duration 12/09/24 progressed 09/23/24 Coffee Brewer Goal (LTG) Improve bladder control with pt not wetting pants more than 1-2x/wk. LTG Duration 01/19/25 Two Impairment Urge urinary incontinece ( leaks ~4x/week w/urge) Coffee Brewer Goal (LTG) Improve PF strength with pt level of continence at her prior level: 95% continence level with urgency 1-2x/wk. 11/22/24: Improved PF strength of contraction to ~5 mV's with quick and long hold contraction. After PF stretching PF strength improved to 10 mV's. LTG Duration 01/19/25 progressing 11/22/24 One Impairment Pt lacks an independent self care HEP. Short Term Goal (STG) Pt will be educated and able to demonstrate transfers to lessen core abdominal pressure . 11/14/24: Pt educated in Transfers with breath/Kegels for core pressure management and in Proper body mechanics for ADLs and Body Mechanics Basics. STG Duration 12/09/24 progressed 11/14/24 (needs to demonstrate core pressure mgmt) Correction Goal (LTG) Pt will be independent in a self care HEP for PF/hip (L ext/IR, R slightly ER) strengthening, hip(L IR/ER)/ trunk (L rot) mobility ex's. 09/16/24: HEP: Kegel Quick, Long hold strengthening. 09/30/24: Trning on deep breathing. 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 Today, pt demonstrates improved mechanics of deep breathing and w/cuing can do a max 6 sec breath w/good abdom excusion. Her PF strength is ~5 mV's and endurance hold is at ~5 mVs. She is now in supine able to perform a PF contraction with minimal abdominal activation with 1 rep (greater than 1 rep not assessed due to time contraints). The pt is slowly improving in her PF strength and is showing improved core pressure mgmt. Less abdominal tension may be helping to reduce urinary leakage by decreasing pressure on internal organs during BMs. The pt will benefit from continuation of skilled physical therapy to assist pt to manage her core pressure and reduce urinary leakage with a strong urge and concomitant BM. Physical Therapy Plan Frequency and Duration Frequency of Treatment 1x/Week Duration of treatment (weeks) 8 Plan of Care Start Date 11/22/24 Plan of Care End Date 01/19/25 Therapeutic Interventions Therapeutic Interventions Coordination Training,Home Exercise Program,Manual Therapy,Neuromuscular Re- education,Self-Care/Home Management,Soft Tissue Mobilization,Therapeutic Activities,Therapeutic Exercises Next Visit Focus/Plan Next Note Type Treatment Note Next Visit Plan Next: Assess for proper core pressure mgmt w/transfers. Educate/discuss proper sit to stand, education in pain mgmt (cryotherapy to L hip)) - RICE for low back. Assess PF baseline/strength/endurance. Cont'd stretch abdominals & around urachus & bladder, and posterior PF (anal). Add: LB, L TFL/IT Band stretch. Start hip(L IR/ER)/ trunk (L rot) mobility ex's, and L hip strengthening (L ext /IR, R slightly ER) strengthening. Work towards pt ability to isolate PF contraction from abdominals (for better voiding urine & fecal). Assess if she can do Kegel on wedge without use of substitute muscles. Occasional check with proper mechanics for 6 sec deep breathing mechanics Modalities if needed: US for L hip bursitis.
--- NOTE | 2024-11-28 17:30 | PT.OTN ---
Current Diagnoses Muscle weakness (generalized) (11/28/24) Trochanteric bursitis, left hip (11/28/24) Overactive bladder (11/28/24) Urge incontinence (11/28/24) Physical Therapy Treatment Note PT-OP-A Visit Information Start: 09/06/24 18:12 Freq: Status: Active Protocol: Document 11/28/24 08:20 LRN (Rec: 11/28/24 09:10 LRN [id number]) Out-Patient Physical Therapy Visit Information Visit Information Visit Type Treatment Note Visit Note Pt is from [place], [place] ([place] miles [place] of [place], [facility] and [place]). Visit Start Time 08:20 Visit Stop Time 09:05 Visit Number Evaluation Information Evaluation Date 09/16/24 Precautions Precautions Pt reported PMH: Back pain from bad discs (? L3-L4, L4- -L5) - 1.5 yrs ago. Osteopenia, L TKA 08/2019, & R TKA 10/2022. Back pain is resolved 80%. 1G1P. PT-OP-B Current Condition Start: 09/06/24 18:12 Freq: Status: Active Protocol: Document 09/16/24 08:18 LRN (Rec: 09/16/24 09:06 LRN [id number]) Current Condition History of Current Condition Onset Date 11/2023 Current Complaints Urge incontinence. History of Current Condition Pt reports previously she had PF physical therapy at [facility] (6-8 sessions) and improve 95%, then she got a yeast infection and now feels like she is starting over again. Yeast infection -02/2024, but now has urge issues along with triggers ( carbonated beverages). Estimates drinking 8 glassess of water a day (no caffeine or alcohol). She is taking estrodial that has allowed her to have intercourse again. PT lives in [place], [place] where she is being seen for L hip Bursitis and tenderness and tenderness of the L knee. Prior Treatments and Tests She receive chiropractic treatments as needed. Treatment Goals Patient/Caregiver Goals Pt goals: -Return to prior level: 95% continence level with urgency 1-2x/wk. -Not wetting pants as much. Personal Factors Other Personal Factors That May Effect Takes 1 hr to get to [facility] from her home. 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 Thinks she might have a yeast infection and had incontinence. Had done water aerobics before going bird watching. On TH drove to [place] and barely made it , no lemon drink. Also having sciatica. PT-OP-I Pelvic Floor Start: 09/06/24 18:12 Freq: Status: Active Protocol: Document 11/22/24 12:16 LRN (Rec: 11/22/24 13:34 LRN [id number]) Pelvic Floor Assessment Comments Pelvic Floor Comments Quick strength ~5 mV's before and after manual therapy 10 mV 's. Endurance strength ~5 mV's before & after manual therapy. PT-OP-J Posture/Palpation/Skin Start: 09/06/24 18:12 Freq: Status: Active Protocol: Document 11/28/24 08:20 LRN (Rec: 11/28/24 17:11 LRN [id number]) Palpation Assessment Location Pelvis Palpation Location Ischial Tuberosities Palpation Details Prone: R Ischial Tub is outflared and elevated. PT-OP-K Range of Motion Start: 09/06/24 18:12 Freq: Status: Active Protocol: Document 09/16/24 08:18 LRN (Rec: 09/16/24 09:06 LRN [id number]) Lumbar Spine Range of Motion Lumbar Spine Active Degrees Testing Position Standing Flexion 105 Extension 15 Rotation Left 10 Rotation Right 15 Lateral Flexion Left 10 Lateral Flexion Right 10 Comments Stiffness restricts mobility. Hip Goniometric Range of Motion Hip Right Passive Testing Position Supine Abduction 30 Internal Rotation 40 External Rotation 70 Left Passive Testing Position Supine Abduction 30 Internal Rotation 25 External Rotation 65 PT-OP-M Strength Start: 09/06/24 18:12 Freq: Status: Active Protocol: Document 09/16/24 08:18 LRN (Rec: 09/16/24 09:06 LRN [id number]) Hip Strength Hip Manual Muscle Testing Right External Rotation 4- Good- Comments Strength is generally 5/5 except as indicated above. Left Extension (S1) 3+ Fair+ Internal Rotation 2- Poor- Comments Strength is generally 5/5 except as indicated above. L hip pain with sidelie. PT-OP-Q Treatments Start: 09/06/24 18:12 Freq: Status: Active Protocol: Document 11/28/24 08:20 LRN (Rec: 11/28/24 09:10 LRN [id number]) Manual Therapy Treatment Soft Tissue Mobilization Sacrum Body Location Sacral balancing Mobilization Type Sustained Pressure Comments Prone: Correcting decreased mobility of: R sacral sulcus PA, and L inferior glide Sacral sheer to L, R АНДРЕЙ PA mob, R Ischial Tub PA mob, Ischial-Ilial Rebalancing & Ischiums-Iliums 6 pt balancing , PT-OP-T Assessment and Plan Start: 09/06/24 18:12 Freq: Status: Active Protocol: Document 11/28/24 08:20 LRN (Rec: 11/28/24 09:10 LRN [id number]) Physical Therapy Assessment Goals Three Impairment Urinary leakage resulting in wetting of pants (~4x/week) Short Term Goal (STG) Pt will be educated in urge deference technique and be able to reduce wetting of pants to 2-3x/week. 09/23/24: Pt educated in urge deference technique. STG Duration 12/09/24 progressed 09/23/24 Refrigerator Room Clerk Goal (LTG) Improve bladder control with pt not wetting pants more than 1-2x/wk. LTG Duration 01/19/25 Two Impairment Urge urinary incontinece ( leaks ~4x/week w/urge) Half-Way Goal (LTG) Improve PF strength with pt level of continence at her prior level: 95% continence level with urgency 1-2x/wk. 11/22/24: Improved PF strength of contraction to ~5 mV's with quick and long hold contraction. After PF stretching PF strength improved to 10 mV's. LTG Duration 01/19/25 progressing 11/22/24 One Impairment Pt lacks an independent self care HEP. Short Term Goal (STG) Pt will be educated and able to demonstrate transfers to lessen core abdominal pressure . 11/14/24: Pt educated in Transfers with breath/Kegels for core pressure management and in Proper body mechanics for ADLs and Body Mechanics Basics. STG Duration 12/09/24 progressed 11/14/24 (needs to demonstrate core pressure mgmt) Half-Way Goal (LTG) Pt will be independent in a self care HEP for PF/hip (L ext/IR, R slightly ER) strengthening, hip(L IR/ER)/ trunk (L rot) mobility ex's. 09/16/24: HEP: Kegel Quick, Long hold strengthening. 09/30/24: Trning on deep breathing. 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 Today, pt has had episode of loss of continence while bird watching, and may possibly due to ?vaginal infection (pt thinks yeast infection). I was not able to finish the sacral balancing due to tension of pelvis and difficulty w/pt relaxation, possibly resulting from ? vaginal infection. Pt's comorbidities hinder her progress. Her R innominate may be inflared and anterior rot or upslipped. Physical Therapy Plan Frequency and Duration Frequency of Treatment 1x/Week Duration of treatment (weeks) 8 Plan of Care Start Date 11/22/24 Plan of Care End Date 01/19/25 Next Visit Focus/Plan Next Note Type Treatment Note Next Visit Plan Next: Assess for proper core pressure mgmt w/transfers, and for R innominate may be inflared and anterior rot or upslipped. Assess response to sacral balancing. Educate/ discuss proper sit to stand, education in pain mgmt ( cryotherapy to L hip)) - RICE for low back. Assess PF baseline/strength/endurance. Cont'd stretch abdominals & around urachus & bladder, and posterior PF (anal). Add: LB, L TFL/IT Band stretch. Start hip(L IR/ER)/ trunk (L rot) mobility ex's, and L hip strengthening (L ext /IR, R slightly ER) strengthening. Work towards pt ability to isolate PF contraction from abdominals (for better voiding urine & fecal). Assess if she can do Kegel on wedge without use of substitute muscles. Occasional check with proper mechanics for 6 sec deep breathing mechanics Modalities if needed: US for L hip bursitis.
--- NOTE | 2024-12-05 17:17 | PT-OP ANOTE ---
Per phone, pt states appt prior to today's appt was canceled due to infection. Today's appt canceled due to on vacation and didn't have enough time to return home and attend therapy since she is coming from [facility]. Pt reports her insurance is only allowing 6 visits for 2024; therefore will want to talk about POC next scheduled visit 12/19/24. Will consider after recheck next visit to continue on a HEP and return later in the year if needed for more therapy. Pt to attend 12/19/24 appt. Pt reminded of her having 2 cancels in a row; therefore if next appt canceled w/o rescheduling, probable DC from PT.
--- NOTE | 2025-04-04 13:39 | PT.OPDS ---
Current Diagnoses Muscle weakness (generalized) (11/28/24) Trochanteric bursitis, left hip (11/28/24) Overactive bladder (11/28/24) Urge incontinence (11/28/24) Visit Care Team Role Provider Type VELIA Antonio Family Provider Non-Staff Primary Care Provider Specialty: Medical Address: [address] [place] [address], [id number] Email: Abdon Headley Attending Provider Non-Staff Referring Provider Specialty: CORPORATE SAFETY MANAGER Address: [address] [place] [address], [id number] Email: Visit Number Visit Number Discharge Summary PT-OP-B Current Condition Start: 09/06/24 18:12 Freq: Status: Active Protocol: Document 09/16/24 08:18 LRN (Rec: 09/16/24 09:06 LRN [id number]) Current Condition History of Current Condition Onset Date 11/2023 Current Complaints Urge incontinence. History of Current Condition Pt reports previously she had PF physical therapy at [facility] (6-8 sessions) and improve 95%, then she got a yeast infection and now feels like she is starting over again. Yeast infection -02/2024, but now has urge issues along with triggers ( carbonated beverages). Estimates drinking 8 glassess of water a day (no caffeine or alcohol). She is taking estrodial that has allowed her to have intercourse again. PT lives in [place], [place] where she is being seen for L hip Bursitis and tenderness and tenderness of the L knee. Prior Treatments and Tests She receive chiropractic treatments as needed. Treatment Goals Patient/Caregiver Goals Pt goals: -Return to prior level: 95% continence level with urgency 1-2x/wk. -Not wetting pants as much. 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 Thinks she might have a yeast infection and had incontinence. Had done water aerobics before going bird watching. On TH drove to [place] and barely made it , no lemon drink. Also having sciatica. PT-OP-I Pelvic Floor Start: 09/06/24 18:12 Freq: Status: Active Protocol: Document 11/22/24 12:16 LRN (Rec: 11/22/24 13:34 LRN [id number]) Pelvic Floor Assessment Comments Pelvic Floor Comments Quick strength ~5 mV's before and after manual therapy 10 mV 's. Endurance strength ~5 mV's before & after manual therapy. PT-OP-J Posture/Palpation/Skin Start: 09/06/24 18:12 Freq: Status: Active Protocol: Document 11/28/24 08:20 LRN (Rec: 11/28/24 17:11 LRN [id number]) Palpation Assessment Location Pelvis Palpation Location Ischial Tuberosities Palpation Details Prone: R Ischial Tub is outflared and elevated. PT-OP-K Range of Motion Start: 09/06/24 18:12 Freq: Status: Active Protocol: Document 09/16/24 08:18 LRN (Rec: 09/16/24 09:06 LRN [id number]) Lumbar Spine Range of Motion Lumbar Spine Active Degrees Testing Position Standing Flexion 105 Extension 15 Rotation Left 10 Rotation Right 15 Lateral Flexion Left 10 Lateral Flexion Right 10 Comments Stiffness restricts mobility. Hip Goniometric Range of Motion Hip Right Passive Testing Position Supine Abduction 30 Internal Rotation 40 External Rotation 70 Left Passive Testing Position Supine Abduction 30 Internal Rotation 25 External Rotation 65 PT-OP-M Strength Start: 09/06/24 18:12 Freq: Status: Active Protocol: Document 09/16/24 08:18 LRN (Rec: 09/16/24 09:06 LRN [id number]) Hip Strength Hip Manual Muscle Testing Right External Rotation 4- Good- Comments Strength is generally 5/5 except as indicated above. Left Extension (S1) 3+ Fair+ Internal Rotation 2- Poor- Comments Strength is generally 5/5 except as indicated above. L hip pain with sidelie. PT-OP-T Assessment and Plan Start: 09/06/24 18:12 Freq: Status: Active Protocol: Document 04/04/25 13:36 KJ (Rec: 04/04/25 13:38 KJ Laptop) Physical Therapy Assessment Goals Three Impairment Urinary leakage resulting in wetting of pants (~4x/week) Short Term Goal (STG) Pt will be educated in urge deference technique and be able to reduce wetting of pants to 2-3x/week. 09/23/24: Pt educated in urge deference technique. STG Duration 12/09/24 progressed 09/23/24 Medical Art Therapist Goal (LTG) Improve bladder control with pt not wetting pants more than 1-2x/wk. LTG Duration 01/19/25 Two Impairment Urge urinary incontinece ( leaks ~4x/week w/urge) Medical Art Therapist Goal (LTG) Improve PF strength with pt level of continence at her prior level: 95% continence level with urgency 1-2x/wk. 11/22/24: Improved PF strength of contraction to ~5 mV's with quick and long hold contraction. After PF stretching PF strength improved to 10 mV's. LTG Duration 01/19/25 progressing 11/22/24 One Impairment Pt lacks an independent self care HEP. Short Term Goal (STG) Pt will be educated and able to demonstrate transfers to lessen core abdominal pressure . 11/14/24: Pt educated in Transfers with breath/Kegels for core pressure management and in Proper body mechanics for ADLs and Body Mechanics Basics. STG Duration 12/09/24 progressed 11/14/24 (needs to demonstrate core pressure mgmt) Medical Art Therapist Goal (LTG) Pt will be independent in a self care HEP for PF/hip (L ext/IR, R slightly ER) strengthening, hip(L IR/ER)/ trunk (L rot) mobility ex's. 09/16/24: HEP: Kegel Quick, Long hold strengthening. 09/30/24: Trning on deep breathing. LTG Duration 01/19/25 progressed 09/30/24 Progress Towards Goals Progress Towards Goals Progressing Toward Goals Physical Therapy Plan Discharge Physical Therapy Discharge Reasons Patient Request Discharge Comments Initial evaluation 09/16/24 with pt attending 10 follow-up visits. Pt called on 12/12/24 to cancel all remaining visits , feeling much better and ready for discharge.
== END 2025-04-04 14:37 | disposition home or self-care (01) ==
LOC: PHYS 08:15
PROVIDERS: Family Provider Nurse Practitioner Family; PCP Nurse Practitioner Family; Referring Provider Obstetrics & Gynecology; Visit Provider Obstetrics & Gynecology
DX: N32.81 Overactive bladder (principal); N39.41 Urge incontinence; M62.81 Muscle weakness (generalized); M70.62 Trochanteric bursitis, left hip
CPT/HCPCS: 97110; 97112; 97140; 97162; 97530; 97535